=== PATIENT | female | born 1960 | race Caucasian/White ===

== ENCOUNTER 2020-08-12 07:58 | Outpatient (REF) | payer BC, SELFPAY ==
--- NOTE | ~2020-08-12 | MM_ITS ---
EXAMINATION: MM SCREENING DIGITAL BREAST TOMOSYNTHESIS, BILATERAL CLINICAL INFORMATION: Screening. Asymptomatic. The lifetime risk of breast cancer based on the Tyrer-Cuzick Model is 5%. COMPARISON: Mammography: 04/19/2019, 04/13/2018, 03/31/2017, 11/27/2015 TECHNIQUE: Digital breast tomosynthesis is performed in both the craniocaudal and mediolateral oblique views along with computer-aided detection (CAD). Synthesized 2D images are generated from the tomosynthesis. FINDINGS: There are scattered areas of fibroglandular density (ACR BI-RADS breast composition Category b). There are no significant masses, abnormal calcifications, or other abnormalities. Parenchymal pattern is similar to prior exams. No developing density. The axilla and skin contours are unremarkable. MM/MM tomosynthesis screening BI IMPRESSION: No mammographic evidence of malignancy. ASSESSMENT: BI-RADS 1: Negative RECOMMENDATION: Routine annual mammography screening. This patient's information was entered into a reminder system with a target due date for their next mammogram.
== END 2020-08-12 07:59 | disposition home or self-care (01) ==
LOC: HO.MAMMO 07:58
PROVIDERS: Visit Provider Internal Medicine
DX: Z12.31 Encounter for screening mammogram for malignant neoplasm of breast (principal)
CPT/HCPCS: 77063; 77067

== ENCOUNTER 2021-01-08 07:58 | Outpatient (REF) | payer BC, SELFPAY ==
[2021-01-08 08:14] LABS: MANUAL DIFF FLAG NO
[2021-01-08 08:55] LABS: Estimated Average Glucose 140 mg/dL; Hemoglobin A1c % 6.5 %
[2021-01-08 08:56] LABS: Basophils Percent Auto 0.7 % (0-2); Eosinophils Absolute Auto 0.3 X10*3/uL (0.0-0.4); Eosinophils Percent Auto 4.2 % (0-4); Hematocrit 36.9 % (37.0-47.0); Hemoglobin 12.3 g/dl (12.0-16.0); Imm Gran Abs Auto 0.02 X10*3/uL (0.00-0.03); Imm Gran Pct Auto 0.3 % (0.0-0.4); Lymphocytes Absolute Auto 1.4 X10*3/uL (1.2-4.9); Lymphocytes Percent Auto 23.5 % (20-40); Mean Corpuscular HGB Conc 33.3 g/dl (31.0-35.0); Mean Corpuscular Hemoglobin 30.4 pg (27.0-33.0); Mean Corpuscular Volume 91.1 fL (80.0-98.0); Mean Platelet Volume 11.1 fL (9.4-12.3); Monocytes Absolute Auto 0.4 X10*3/uL (0.1-1.2); Monocytes Percent Auto 7.2 % (2-11); Neutrophils Absolute Auto 3.8 x10*3/uL (2.0-8.3); Neutrophils Percent Auto 64.1 % (45-73); Platelet Count 231 X10*3/uL (160-400); Red Blood Count 4.05 X10*6/uL (4.20-5.50); Red Cell Distribution Width 13.3 % (11.0-16.0)
[2021-01-08 09:22] LABS: Alanine Aminotransferase 14 U/L (0-31); Alkaline Phosphatase 56 U/L (39-117); Anion Gap 9 (12-20); Aspartate Amino Transferase 14 U/L (5-31); Bilirubin Total 0.6 mg/dL (0.0-1.0); Blood Urea Nitrogen 15 mg/dL (9-16); Calcium 8.8 mg/dL (8.4-10.2); Carbon Dioxide 27 mmol/L (22-29); Chloride 108 mmol/L (96-108); Cholesterol 134 mg/dL; Estimated Glomerular Filt Rate > 60; Glucose Random 140 mg/dL (60-115); HDL Cholesterol 52 mg/dL; LDL Cholesterol Calculated 72 mg/dl; Potassium 4.3 mmol/L (3.3-5.1); Sodium 140 mmol/L (135-145); Total Protein 6.4 g/dL (6.5-8.0); Triglycerides 50 mg/dL
== END 2021-01-08 07:59 | disposition home or self-care (01) ==
LOC: HO.LAB 07:58
PROVIDERS: PCP Internal Medicine; Visit Provider Physician Assistant
DX: E11.9 Type 2 diabetes mellitus without complications (principal); E78.2 Mixed hyperlipidemia
CPT/HCPCS: 36415; 80053; 80061; 83036; 85025

== ENCOUNTER 2021-04-04 08:44 | Outpatient (REF) | payer BC, SELFPAY ==
--- NOTE | ~2021-04-04 | CT_ITS ---
EXAMINATION: CT HEAD WITHOUT CONTRAST CLINICAL INFORMATION: Dizziness and giddiness. COMPARISON: CT brain 11/08/2014 and June 2005 TECHNIQUE: Contiguous axial imaging was performed from the skull base to vertex without intravenous administration of contrast. This CT examination was performed using dose optimization techniques as appropriate, variously including the following: *Automated exposure control *Adjustment of mA and/or kV according to patient size (this includes techniques or standardized protocols for targeted exams where dose is matched to indication/reason for exam; i.e. extremities or head) *Use of iterative reconstruction technique DLP: 729 mGy-cm FINDINGS: There is a 1.7 x 1.7 cm calcified mass left cerebral hemisphere attached to the left tentorium cerebri most suggestive of a known meningioma. Previously, it measured 1.3 x 2.0 cm in 2014. No acute intra-axial, extra-axial bleed, collection, new masses, or midline shift. The stanton to white matter difference is maintained. There is no acute infarction evolution. There is no edema. There is mild periventricular hypodensity in both cerebral hemispheres without mass effect. The lateral ventricles are symmetrical in size and configuration without enlargement. Bone windows reveal no calvarial abnormality. Bilateral paranasal sinuses and mastoid air cells are well aerated. CT/CT head/brain wo con IMPRESSION: No acute intracranial process seen. Known left cerebellar hemisphere extra-axial calcified mass/meningioma appears unchanged to 2014 and 2005 exam.
== END 2021-04-04 08:45 | disposition home or self-care (01) ==
LOC: HO.CT 08:44
PROVIDERS: PCP Internal Medicine; Visit Provider Physician Assistant
DX: R42 Dizziness and giddiness (principal)
CPT/HCPCS: 70450

== ENCOUNTER 2021-04-21 09:39 | Outpatient (REF) | payer BC, SELFPAY ==
--- NOTE | ~2021-04-21 | US_ITS ---
EXAMINATION: US EXTRACRANIAL CAROTID DUPLEX, BILATERAL CLINICAL INFORMATION: Dizziness COMPARISON: None TECHNIQUE: Real-time ultrasound and Doppler techniques (integrating B-mode 2-D vascular images, Doppler spectral analysis and color-flow Doppler imaging) were utilized to interrogate the extracranial carotid arteries, the vertebral arteries and proximal subclavian arteries bilaterally. The degree of stenosis is determined by criteria similar to NASCET. FINDINGS: Right Side: 1. There is mild atherosclerotic plaque seen in the bifurcation/proximal ICA region. 2. The common carotid artery PSV proximally is 88 cm/s and distally 68 cm/s. 3. The proximal internal carotid artery velocities are 56 cm/s systolic and 13 cm/s diastolic. 4. The proximal external carotid artery PSV is 78 cm/s. 5. The vertebral artery shows antegrade flow. 6. The subclavian artery waveforms are normal. Left Side: 1. There is mild atherosclerotic plaque seen in the bifurcation/proximal ICA region. 2. The common carotid artery PSV proximally is 71 cm/s and distally 66 cm/s. 3. The proximal internal carotid artery velocities are 45 cm/s systolic and 17 cm/s diastolic. 4. The proximal external carotid artery PSV is 62 cm/s. 5. The vertebral artery shows antegrade flow. 6. The subclavian artery waveforms are normal. US/US carotid duplex BI IMPRESSION: 1. RIGHT: Minimal, non-hemodynamically significant stenosis of the proximal right internal carotid artery corresponding to a 0-49% stenosis by velocity criteria. 2. LEFT: Minimal, non-hemodynamically significant stenosis of the proximal left internal carotid artery corresponding to a 0-49% stenosis by velocity criteria.
== END 2021-04-21 09:40 | disposition home or self-care (01) ==
LOC: HO.US 09:39
PROVIDERS: PCP Internal Medicine; Visit Provider Physician Assistant
DX: R42 Dizziness and giddiness (principal)
CPT/HCPCS: 93880

== ENCOUNTER 2021-11-11 13:56 | Outpatient (REF) | payer OTHER, SELFPAY ==
[2021-11-11 18:32] LABS: Rheumatoid Factor < 15.0 IU/mL (<15.0)
[2021-11-11 19:04] LABS: Erythrocyte Sedimentation Rate 12 MM/HR (0-20)
[2021-11-13 12:57] LABS: Anti Nuclear Antibody Screen NEGATIVE (NEGATIVE)
[2021-11-15 22:52] LABS: Antibody to SS-A Antigen <1.0 NEG AI (<1.0 NEG); Antibody to SS-B Antigen <1.0 NEG AI (<1.0 NEG)
== END 2021-11-11 13:57 | disposition home or self-care (01) ==
LOC: HO.MANLDS 13:56
PROVIDERS: Internal Medicine; Visit Provider Physician Assistant
DX: I73.00 Raynaud's syndrome without gangrene (principal)
CPT/HCPCS: 36415; 85652; 86038; 86039; 86235; 86431

== ENCOUNTER 2021-11-15 16:34 | Outpatient (REF) | payer OTHER, SELFPAY ==
--- NOTE | ~2021-11-15 | XR_ITS ---
EXAMINATION: XR FOOT, LEFT CLINICAL INFORMATION: Left foot pain. COMPARISON: None TECHNIQUE: AP, lateral, and oblique views of the left foot. FINDINGS: There is a mild hallux valgus deformity with mild degenerative changes at the first metatarsophalangeal joint. Mild hypertrophic changes are seen in the medial aspect of the distal metatarsal head with overlying soft tissue fullness medially. The remainder the digits are intact. The tarsal bones are normally aligned. There is a small plantar calcaneal spur. Moderate to severe small vessel arterial sclerosis is seen. XR/XR foot LT min 3V IMPRESSION: 1. 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 No overt acute abnormality. 2. Small plantar calcaneal spur. 3. Moderate to severe atherosclerosis.
--- NOTE | ~2021-11-15 | XR_ITS ---
EXAMINATION: XR FOOT, RIGHT CLINICAL INFORMATION: Right foot pain. COMPARISON: None TECHNIQUE: AP, lateral, and oblique views of the right foot. FINDINGS: There is no acute fracture or dislocation. The joint spaces are unremarkable. The tarsal bones are normally aligned. Mild soft tissue swelling is seen. Moderate to severe small vessel arterial sclerosis. XR/XR foot RT min 3V IMPRESSION: Moderate to severe atherosclerosis without significant osseous abnormality.
== END 2021-11-15 16:35 | disposition home or self-care (01) ==
LOC: HO.XRAY 16:34
PROVIDERS: PCP Internal Medicine; Visit Provider Physician Assistant
DX: M79.671 Pain in right foot (principal)
CPT/HCPCS: 73630

== ENCOUNTER 2021-12-10 08:38 | Outpatient (REF) | payer OTHER, SELFPAY ==
[2021-12-10 10:19] LABS: Anion Gap 14 (12-20); Blood Urea Nitrogen 13 mg/dL (9-16); Calcium 9.2 mg/dL (8.4-10.2); Carbon Dioxide 23 mmol/L (22-29); Chloride 109 mmol/L (96-108); Estimated Glomerular Filt Rate > 60; Glucose Random 218 mg/dL (60-115); Potassium 4.4 mmol/L (3.3-5.1); Sodium 142 mmol/L (135-145)
== END 2021-12-10 08:39 | disposition home or self-care (01) ==
LOC: HO.LAB 08:38
PROVIDERS: PCP Internal Medicine; Visit Provider Internal Medicine Cardiovascular Disease
DX: I10 Essential (primary) hypertension (principal)
CPT/HCPCS: 36415; 80048

== ENCOUNTER 2021-12-31 08:06 | Outpatient (REF) | payer OTHER, SELFPAY ==
--- NOTE | ~2021-12-31 | MM_ITS ---
EXAMINATION: MM SCREENING DIGITAL BREAST TOMOSYNTHESIS, BILATERAL CLINICAL INFORMATION: Screening. Asymptomatic. COMPARISON: Mammography: 08/12/2020, 04/19/2019, 04/13/2018 TECHNIQUE: Digital breast tomosynthesis is performed in both the craniocaudal and mediolateral oblique views along with computer-aided detection (CAD). Synthesized 2D images are generated from the tomosynthesis. FINDINGS: There are scattered areas of fibroglandular density (ACR BI-RADS breast composition Category b). There are no significant masses, abnormal calcifications, or other abnormalities. Parenchymal pattern is similar to prior exams. There is stable oval parenchymal asymmetry mid central 9:00 right breast. Scattered bilateral round and vascular calcifications are again seen. No significant changes. MM/MM tomosynthesis screening BI IMPRESSION: No mammographic evidence of malignancy. ASSESSMENT: BI-RADS 2: Benign RECOMMENDATION: Routine annual mammography screening. This patient's information was entered into a reminder system with a target due date for their next mammogram.
[2021-12-31 08:44] LABS: MANUAL DIFF FLAG NO
[2021-12-31 09:04] LABS: Basophils Absolute Auto 0.1 X10*3/uL (0.0-0.2); Basophils Percent Auto 0.8 % (0-2); Eosinophils Absolute Auto 0.4 X10*3/uL (0.0-0.4); Eosinophils Percent Auto 5.2 % (0-4); Hemoglobin 12.4 g/dl (12.0-16.0); Imm Gran Abs Auto 0.06 X10*3/uL (0.00-0.03); Imm Gran Pct Auto 0.8 % (0.0-0.4); Lymphocytes Percent Auto 26.3 % (20-40); Mean Corpuscular HGB Conc 33.5 g/dl (31.0-35.0); Mean Corpuscular Hemoglobin 29.6 pg (27.0-33.0); Mean Corpuscular Volume 88.3 fL (80.0-98.0); Mean Platelet Volume 11.2 fL (9.4-12.3); Monocytes Absolute Auto 0.4 X10*3/uL (0.1-1.2); Monocytes Percent Auto 5.9 % (2-11); Neutrophils Absolute Auto 4.6 x10*3/uL (2.0-8.3); Platelet Count 280 X10*3/uL (160-400); Red Blood Count 4.19 X10*6/uL (4.20-5.50); Red Cell Distribution Width 13.7 % (11.0-16.0); White Blood Count 7.5 X10*3/uL (4.8-10.8)
[2021-12-31 09:20] LABS: Estimated Average Glucose 192 mg/dL; Hemoglobin A1c % 8.3 %
[2021-12-31 09:39] LABS: Alanine Aminotransferase 39 U/L (0-31); Albumin Level 4.1 g/dL (3.5-5.0); Alkaline Phosphatase 67 U/L (39-117); Anion Gap 15 (12-20); Aspartate Amino Transferase 31 U/L (5-31); Bilirubin Total 0.6 mg/dL (0.0-1.0); Blood Urea Nitrogen 18 mg/dL (9-16); Calcium 9.4 mg/dL (8.4-10.2); Carbon Dioxide 21 mmol/L (22-29); Chloride 109 mmol/L (96-108); Cholesterol 116 mg/dL; Estimated Glomerular Filt Rate > 60; Glucose Random 223 mg/dL (60-115); HDL Cholesterol 41 mg/dL; LDL Cholesterol Calculated 65 mg/dl; Potassium 4.8 mmol/L (3.3-5.1); Sodium 140 mmol/L (135-145); Total Protein 6.5 g/dL (6.5-8.0); Triglycerides 52 mg/dL
== END 2021-12-31 08:07 | disposition home or self-care (01) ==
LOC: HO.MAMMO 08:06
PROVIDERS: Physician Assistant; PCP Internal Medicine; Visit Provider Internal Medicine
DX: E78.2 Mixed hyperlipidemia (principal); E11.9 Type 2 diabetes mellitus without complications; Z12.31 Encounter for screening mammogram for malignant neoplasm of breast
CPT/HCPCS: 36415; 77063; 77067; 80053; 80061; 83036; 85025

== ENCOUNTER 2022-05-29 23:24 | Outpatient (REF) | payer OTHER, SELFPAY ==
[2022-05-30 00:06] LABS: Appearance Urine Clear; Color Urine Yellow; Glucose Urine UA Negative (Negative); Leukocyte Esterase Urine Small (1+) (Negative); Nitrite Urine Negative (Negative); PH 5.5 (5.0-9.0); Specific Gravity - Urine <= 1.005 (1.005-1.025); UMIC TRIGGER UACC YES; Urine Blood Trace (Negative); Urine Ketones Negative (Negative); Urine Protein Negative (Neg-Trace)
[2022-05-30 00:08] LABS: Bacteria Urine None Seen (None Seen); Hyaline Casts Urine 0-2 /LPF (0-2); RBC Urine 0-2 /HPF (0-2); Squamous Epithelial Cell Urine 0-2 /HPF (0-2); UACC Culture Trigger YES
== END 2022-05-29 23:25 | disposition home or self-care (01) ==
LOC: HO.LAB 23:24
PROVIDERS: Visit Provider Physician Assistant
DX: R30.0 Dysuria (principal)
CPT/HCPCS: 81001; 81003; 87086

== ENCOUNTER 2022-06-13 09:08 | Outpatient (REF) | payer OTHER, SELFPAY ==
[2022-06-13 11:38] LABS: Appearance Urine Clear; Color Urine Yellow; Glucose Urine UA 250 mg/dL (Negative); Leukocyte Esterase Urine Negative (Negative); Nitrite Urine Negative (Negative); PH 5.5 (5.0-9.0); Specific Gravity - Urine <= 1.005 (1.005-1.025); Urine Blood Negative (Negative); Urine Ketones Negative (Negative); Urine Protein Negative (Neg-Trace)
== END 2022-06-13 09:09 | disposition home or self-care (01) ==
LOC: HO.MANLDS 09:08
PROVIDERS: Visit Provider Internal Medicine
DX: R30.0 Dysuria (principal)
CPT/HCPCS: 81003

== ENCOUNTER 2022-11-20 07:39 | Outpatient (REF) | payer OTHER, SELFPAY ==
[2022-11-20 13:59] LABS: Estimated Average Glucose 154 mg/dL
[2022-11-20 14:32] LABS: Alanine Aminotransferase 58 U/L (0-31); Albumin Level 4.1 g/dL (3.5-5.0); Alkaline Phosphatase 64 U/L (39-117); Anion Gap 15 (12-20); Aspartate Amino Transferase 47 U/L (5-31); Bilirubin Total 0.5 mg/dL (0.0-1.0); Blood Urea Nitrogen 9 mg/dL (9-16); Calcium 9.6 mg/dL (8.4-10.2); Carbon Dioxide 22 mmol/L (22-29); Chloride 109 mmol/L (96-108); Cholesterol 91 mg/dL (<200); Estimated Glomerular Filt Rate > 60; Glucose Random 153 mg/dL (60-115); HDL Cholesterol 42 mg/dL (>40); LDL Cholesterol Calculated 37 mg/dL (<100); Potassium 4.4 mmol/L (3.3-5.1); Sodium 142 mmol/L (135-145); Total Protein 6.8 g/dL (6.5-8.0); Triglycerides 60 mg/dL (<150)
== END 2022-11-20 07:40 | disposition home or self-care (01) ==
LOC: HO.MANLDS 07:39
PROVIDERS: Visit Provider Physician Assistant
DX: E11.9 Type 2 diabetes mellitus without complications (principal)
CPT/HCPCS: 36415; 80053; 80061; 83036

== ENCOUNTER 2023-01-09 07:40 | Outpatient (REF) | payer OTHER, SELFPAY ==
[2023-01-09 13:39] LABS: Estimated Average Glucose 146 mg/dL; Hemoglobin A1c % 6.7 % (<6.0)
[2023-01-09 13:50] LABS: Alanine Aminotransferase 47 U/L (0-31); Albumin Level 4.5 g/dL (3.5-5.0); Alkaline Phosphatase 69 U/L (39-117); Anion Gap 13 (12-20); Aspartate Amino Transferase 42 U/L (5-31); Bilirubin Total 0.5 mg/dL (0.0-1.0); Blood Urea Nitrogen 14 mg/dL (9-16); Calcium 10.2 mg/dL (8.4-10.2); Carbon Dioxide 23 mmol/L (22-29); Chloride 106 mmol/L (96-108); Cholesterol 95 mg/dL (<200); Estimated Glomerular Filt Rate > 60; Glucose Random 100 mg/dL (60-115); HDL Cholesterol 45 mg/dL (>40); LDL Cholesterol Calculated 36 mg/dL (<100); Potassium 3.7 mmol/L (3.3-5.1); Sodium 138 mmol/L (135-145); Total Protein 7.5 g/dL (6.5-8.0); Triglycerides 71 mg/dL (<150)
== END 2023-01-09 07:41 | disposition home or self-care (01) ==
LOC: HO.MANLDS 07:40
PROVIDERS: Visit Provider Physician Assistant
DX: E11.9 Type 2 diabetes mellitus without complications (principal)
CPT/HCPCS: 36415; 80053; 80061; 83036

== ENCOUNTER 2023-01-27 07:57 | Outpatient (REF) | payer OTHER, SELFPAY ==
--- NOTE | ~2023-01-27 | MM_ITS ---
EXAMINATION: MM SCREENING DIGITAL BREAST TOMOSYNTHESIS, BILATERAL CLINICAL INFORMATION: Screening. Asymptomatic. COMPARISON: Mammography: This study is compared with prior exams dating back to 2019. TECHNIQUE: Digital breast tomosynthesis is performed in both the craniocaudal and mediolateral oblique views along with computer-aided detection (CAD). Synthesized 2D images are generated from the tomosynthesis. FINDINGS: There are scattered areas of fibroglandular density (ACR BI-RADS breast composition Category b). There are grouped calcifications in the superior aspect of the left breast. These warrant additional mammographic imaging with magnification. In the right breast, there are no significant masses, abnormal calcifications, or other abnormalities. MM/MM tomosynthesis screening BI IMPRESSION: Left breast calcifications warrant additional mammographic imaging magnification. No mammographic signs of malignancy right breast. ASSESSMENT: BI-RADS BI-RADS 0 - Incomplete: Needs additional Imaging. RECOMMENDATION: Additional views of the left breast Radiology department staff will contact the patient for additional imaging. Additional Imaging required This examination should not preclude the clinical evaluation of a suspicious palpable abnormality. This patient's information was entered into a reminder system with a target due date for their next mammogram.
== END 2023-01-27 07:58 | disposition home or self-care (01) ==
LOC: HO.MAMMO 07:57
PROVIDERS: PCP Internal Medicine; Visit Provider Internal Medicine
DX: Z12.31 Encounter for screening mammogram for malignant neoplasm of breast (principal)
CPT/HCPCS: 77063; 77067

== ENCOUNTER → 2023-01-27 08:15 | Outpatient (BNV) | payer OTHER, SELFPAY | PROVIDERS: PCP Internal Medicine; Visit Provider Radiology Diagnostic Radiology | DX: Z12.31 Encounter for screening mammogram for malignant neoplasm of breast (principal) | CPT/HCPCS: 77063; 77067 ==

== ENCOUNTER 2023-03-02 14:07 | Outpatient (REF) | payer OTHER, SELFPAY ==
--- NOTE | ~2023-03-02 | MM_ITS ---
EXAMINATION: MM DIAGNOSTIC DIGITAL MAMMOGRAPHY, LEFT CLINICAL INFORMATION: Follow-up left breast calcifications seen tightly grouped superior slightly inner left breast mid to anterior one third. COMPARISON: Mammography: 01/27/2023, 12/31/2021, 08/12/2020, and dating back to 2014. TECHNIQUE: Digital mammography is performed in the following views: 2-D spot magnification views left CC and ML projections. FINDINGS: There are scattered areas of fibroglandular density (ACR BI-RADS breast composition Category b). Calcifications identified in the upper slightly inner left breast, mid to anterior one third, appears somewhat coarse, tightly grouped, minimally pleomorphic, with no linear or branching forms. These have a probably benign, likely dystrophic appearance. Six-month follow-up left breast mammogram with standard magnification views recommended to to ensure stability. Results are provided to the patient at time of visit by the technologist. MM/MM added views LT IMPRESSION: Probably benign calcifications left breast as detailed above. Six-month interval follow-up left mammography with standard magnification views recommended. ASSESSMENT: BI-RADS BI-RADS 3 - Probably benign finding(s) - 6 month follow-up suggested RECOMMENDATION: 6 Month F/U This patient's information was entered into a reminder system with a target due date for their next mammogram.
== END 2023-03-02 14:08 | disposition home or self-care (01) ==
LOC: HO.MAMMO 14:07
PROVIDERS: PCP Internal Medicine; Visit Provider Internal Medicine
DX: R92.1 Mammographic calcification found on diagnostic imaging of breast (principal)
CPT/HCPCS: 77065

== ENCOUNTER → 2023-03-02 14:30 | Outpatient (BNV) | payer OTHER, SELFPAY | PROVIDERS: PCP Internal Medicine; Visit Provider Radiology Diagnostic Radiology | DX: R92.1 Mammographic calcification found on diagnostic imaging of breast (principal) | CPT/HCPCS: 77065 ==

== ENCOUNTER 2023-06-18 08:08 | Outpatient (REF) | payer OTHER, SELFPAY ==
[2023-06-18 13:42] LABS: Estimated Average Glucose 137 mg/dL; Hemoglobin A1c % 6.4 % (<6.0)
[2023-06-18 13:59] LABS: Alanine Aminotransferase 54 U/L (0-31); Albumin Level 4.2 g/dL (3.5-5.0); Alkaline Phosphatase 73 U/L (39-117); Anion Gap 16 (12-20); Aspartate Amino Transferase 38 U/L (5-31); Bilirubin Total 0.6 mg/dL (0.0-1.0); Blood Urea Nitrogen 13 mg/dL (9-16); Calcium 9.7 mg/dL (8.4-10.2); Carbon Dioxide 22 mmol/L (22-29); Chloride 106 mmol/L (96-108); Cholesterol 105 mg/dL (<200); Estimated Glomerular Filt Rate > 60; Glucose Random 183 mg/dL (60-115); HDL Cholesterol 54 mg/dL (>40); LDL Cholesterol Calculated 43 mg/dL (<100); Sodium 140 mmol/L (135-145); Total Protein 7.2 g/dL (6.5-8.0); Triglycerides 41 mg/dL (<150)
== END 2023-06-18 08:09 | disposition home or self-care (01) ==
LOC: HO.MANLDS 08:08
PROVIDERS: Visit Provider Physician Assistant
DX: E11.9 Type 2 diabetes mellitus without complications (principal)
CPT/HCPCS: 36415; 80053; 80061; 83036

== ENCOUNTER 2023-09-06 11:10 | Outpatient (REF) | payer OTHER, SELFPAY ==
--- NOTE | ~2023-09-06 | MM_ITS ---
EXAMINATION: MM DIAGNOSTIC DIGITAL MAMMOGRAPHY, LEFT CLINICAL INFORMATION: Six-month follow-up for probably benign grouped left breast calcifications slightly inner superior left breast, mid to anterior one third. COMPARISON: Mammography: 03/02/2023, 01/27/2023 (BI-RADS 0), and exams dating back to 2016. TECHNIQUE: Digital mammography is performed in the following views: 2-D spot magnification left CC x2, and left ML x2. Computer-aided diagnosis was used for this study. FINDINGS: There are scattered areas of fibroglandular density (ACR BI-RADS breast composition Category b). Calcifications identified in the upper slightly inner left breast, mid to anterior one third, appears somewhat coarse, tightly grouped, minimally pleomorphic, with no linear or branching forms. These have a probably benign, likely dystrophic appearance, and are entirely unchanged. Six-month follow-up left breast mammogram with standard magnification views recommended to to ensure stability. Results are provided to the patient at time of visit by the technologist. MM/MM diagnostic mammo unilat LT IMPRESSION: There are no findings suspicious for malignancy left breast. Left breast calcifications which are tightly grouped remain probably benign as discussed. Six-month follow-up left breast diagnostic mammography including standard magnification views recommended when the patient is due for bilateral screening. ASSESSMENT: BI-RADS BI-RADS 3 - Probably benign finding(s) - 6 month follow-up suggested RECOMMENDATION: 6 Month F/U This patient's information was entered into a reminder system with a target due date for their next mammogram.
== END 2023-09-06 11:11 | disposition home or self-care (01) ==
LOC: HO.MAMMO 11:10
PROVIDERS: Visit Provider Internal Medicine
DX: N64.89 Other specified disorders of breast (principal)
CPT/HCPCS: 77062; 77065

== ENCOUNTER → 2023-09-06 11:30 | Outpatient (BNV) | payer OTHER, SELFPAY | PROVIDERS: Visit Provider Radiology Diagnostic Radiology | DX: R92.1 Mammographic calcification found on diagnostic imaging of breast (principal) | CPT/HCPCS: 77065 ==

== ENCOUNTER 2023-09-21 07:42 | Outpatient (REF) | payer OTHER, SELFPAY ==
[2023-09-21 13:28] LABS: Estimated Average Glucose 134 mg/dL; Hemoglobin A1c % 6.3 % (<6.0)
[2023-09-21 14:41] LABS: Alanine Aminotransferase 29 U/L (0-31); Albumin Level 4.3 g/dL (3.5-5.0); Alkaline Phosphatase 68 U/L (39-117); Anion Gap 14 (12-20); Aspartate Amino Transferase 27 U/L (5-31); Bilirubin Total 0.5 mg/dL (0.0-1.0); Blood Urea Nitrogen 14 mg/dL (9-16); Calcium 9.5 mg/dL (8.4-10.2); Carbon Dioxide 22 mmol/L (22-29); Chloride 108 mmol/L (96-108); Cholesterol 110 mg/dL (<200); Estimated Glomerular Filt Rate > 60; Glucose Random 160 mg/dL (60-115); HDL Cholesterol 56 mg/dL (>40); LDL Cholesterol Calculated 46 mg/dL (<100); Sodium 140 mmol/L (135-145); Triglycerides 43 mg/dL (<150)
== END 2023-09-21 07:43 | disposition home or self-care (01) ==
LOC: HO.MANLDS 07:42
PROVIDERS: Visit Provider Physician Assistant
DX: E11.9 Type 2 diabetes mellitus without complications (principal)
CPT/HCPCS: 36415; 80053; 80061; 83036

== ENCOUNTER → 2024-03-27 13:30 | Outpatient (BNV) | payer OTHER, MEDICARE, SELFPAY | PROVIDERS: PCP Internal Medicine; Visit Provider Internal Medicine | DX: R92.1 Mammographic calcification found on diagnostic imaging of breast (principal); R92.323 Mammographic fibroglandular density, bilateral breasts | CPT/HCPCS: 77062; 77066 ==

== ENCOUNTER 2024-04-04 08:39 | Outpatient (REF) | payer OTHER, MEDICARE, SELFPAY ==
--- OUTSIDE RECORDS SUMMARY | 2024-04-04 08:55 | XMS_ITS | Data Portability ---
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 MEET 2 OUT OF 3 ELEMENTS: PROBLEMS, DATA OR RISK ELEMENT 1: PROBLEMS ADDRESSED 1 OR MORE CHRONIC ILLNESS WITH EXACERBATION OR 2 OR MORE STABLE CHRONIC ILLNESSES OR 1 UNDIAGNOSED NEW PROBLEM OR 1 ACUTE ILLNESS W/SYMPTOMS OR 1 ACUTE COMPLICATED INJURY ELEMENT 2: DATA MUST MEET 1 OF 3 CATEGORIES CATEGORY 1: REVIEW OF PRIOR EXTERNAL NOTES, REVIEW OF RESULTS, ORDERING OF EACH TEST, ASSESSMENT REQUIRING INDEPENDENT HISTORIAN OR CATEGORY 2: INDEPENDENT INTERPRETATION OF TESTS BY ANOTHER PHYSICIAN OR SPECIALIST OR CATEGORY 3: DISCUSSION OF MGT OR TEST INTERPRETATION W/EXTERNAL PHYSICIAN OR SPECIALIST ELEMENT 3: RISK RISK OF COMPLICATIONS AND/OR MORBIDITY OR MORTALITY OF PATIENT MANAGEMENT PROVIDER MUST THOROUGHLY DOCUMENT EACH ELEMENT THAT IS COVERED Not available 06/20/2023 15:17:04 Plan of Treatment Reminders Order Date Submit Date Provider Last Modified By Organization Details Last Modified Time Details Appointments MEDICAR E MATTHIEU WELLNES S 2024 10:30A M ESPINOZA GUERRERO Not available Not available Not available Lab HbA1c (hemogl obin A1c), blood 2023 024 [facility], [address] [place] [address], [place], [address], 06/20/2023 15:20:20 CMP, serum or plasma 2022 023 [facility], [address] [place] [address], [id number], 11/21/2022 12:08:05 lipid panel, blood 2022 023 [facility], [address] [place] [address], [id number], 09/06/2022 16:50:26 hemoglo bin A1c, QN, blood 2022 023 [facility], [address] [place] [address], [id number], 09/06/2022 16:50:27 CMP, serum or plasma 2022 023 [facility], [address] [place] [address], [address], 01/10/2023 12:03:34 CMP, serum or plasma 2022 024 [facility], [address] [place] [address], [id number], 06/19/2023 11:26:14 CMP, serum or plasma 2023 024 [facility], [address] [place] [address], [place], [address], 06/19/2023 11:26:14 urinaly sis, dipstic k 2022 023 [facility], [address], [address], [place], [address], 05/29/2022 11:52:43 urinaly sis complet e, reflex culture 2022 023 [facility], [address] [place] [address], [id number], 05/30/2022 11:19:02 LORY (antinu clear antibod ies) screen, serum 2021 022 [facility], [address] [place] [address], [place], [address], 11/11/2021 13:50:33 ESR (erythr ocyte sedimen tation rate), blood 2021 [facility], [address] [place] [address], [place], [address], 11/14/2021 11:13:05 rf (rheuma toid factor) , serum 2021 [facility], [address] [place] [address], [place], [address], 11/11/2021 13:50:33 sjogren antibod y panel (ssa, ssb, ro, la), serum 2021 [facility], [address] [place] [address], [address], 11/11/2021 13:50:33 PPD (purifi ed protein derivat crow), skin test 2021 [email or web address] [facility], [address], [address], [place], [address], 06/24/2021 15:36:14 Referral orthope dic surgeon referra l 2021 [email or web address] 10 Jamari Palomo MD, [address], [address], [place], [address], 11/25/2021 16:27:30 Procedures None recorde d. Surgeries None recorde d. Imaging US, duplex, arteria l, lower extremi ty 2021 [email or web address] 10 [facility], [address], [place], [address], 11/14/2021 10:33:12 XR, foot, 3 or more view 2021 [facility], [address] [place], [address], 11/17/2021 11:28:51 Medication Orders Ozempic 0.25 mg or 0.5 mg (2 mg/1.5 mL) subcuta neous pen injecto r 2022 023 [email or web address] [facility] [place], [address] [place], [address], 06/20/2023 15:06:34 rosuvas tatin 40 mg tablet 2022 023 [facility] [place], [address] [place], [address], 09/06/2022 16:51:27 Bactrim DS 800 mg-160 mg tablet 2022 023 [facility] [place], [address] [place], [address], 06/20/2023 15:13:32 Pyridiu m 200 mg tablet 2022 023 [email or web address] [facility] [place], [address] [place], [address], 09/06/2022 16:11:11 topiram ate 25 mg tablet 2021 022 [email or web address] [facility] [place], [address] [place], [address], 05/29/2022 11:29:53 tramado l 50 mg tablet 2021 022 [facility] [place], [address] [place], [address], 11/11/2021 14:01:14 Patient TargetsNo targets recorded. Patient Instructions Encounter Date Encounter Id Patient Instructions Last Modified By Organization Details Last Modified Time 09/06/2022 [id number] diabetic foot exam* [id number] Not available 09/13/2022 08:00:27 06/20/2023 [id number] Peripheral Arterial Disease (PAD): Care Instructions Not available 06/20/2023 15:19:12 Reason for Referral Orthopedic Surgeon Referral for Degenerative joint disease of hand left hand pain due to arthritis, current patient Referring Physician: Mimi De León, Internal Medicine, Encounter Date: 11/11/2021 Results Created Date Observation Date Name Description Value Unit Range Abnormal Flag Note LastModifiedBy Organization Detail LastModifiedTime 06/25/19 22 06/24/2021 PPD (lj fied prote in deriv ative ), skin test TB negati ve Not Available [facility] [address] [place] [address], [place], [address], 06/24/2021 15:25:38 05/30/19 23 05/29/2022 urina lysis , dipst ick Leukocytes Trace Not Available [facility] [address], [place], [address], 05/29/2022 11:24:42 05/30/19 23 05/29/2022 urina lysis , dipst ick Nitrite negati ve Not Available [address], [place], [address], 05/29/2022 11:24:42 05/30/19 23 05/29/2022 urina lysis , dipst ick Urobilinogen .2 Not Available [facility] [address] [facility] [address], [place], [address], 05/29/2022 11:24:42 05/30/19 23 05/29/2022 urina lysis , dipst ick Protein Negati ve Not Available [address], [place], [address], 05/29/2022 11:24:42 05/30/19 23 05/29/2022 urina lysis , dipst ick pH 6.0 Not Available [facility] [address], [place], [address], 05/29/2022 11:24:42 05/30/19 23 05/29/2022 urina lysis , dipst ick Blood Small Not Available [facility] [address], [place], [address], 05/29/2022 11:24:42 05/30/19 23 05/29/2022 urina lysis , dipst ick Specific [place] 1.015 Not Available [facility] [address], [place], [address], 05/29/2022 11:24:42 05/30/19 23 05/29/2022 urina lysis , dipst ick Ketone Negati ve Not Available [facility] [address] [facility] [address], [place], [address], 05/29/2022 11:24:42 05/30/19 23 05/29/2022 urina lysis , dipst ick Bilirubin Negati ve Not Available [facility] [address], [place], [address], 05/29/2022 11:24:42 05/30/19 23 05/29/2022 urina lysis , dipst ick Glucose Negati ve Not Available [facility] [address], [place], [address], 05/29/2022 11:24:42 05/30/19 23 05/29/2022 urina lysis , dipst ick Appearance Slight ly Cloudy Not Available [facility] [address], [place], [address], 05/29/2022 11:24:42 05/30/19 23 05/29/2022 urina lysis , dipst ick Color Pale Yellow Not Available [facility] [address], [place], [address], 05/29/2022 11:24:42 11/18/19 22 11/15/2021 XR, foot, 3 or more view No observ ation record ed. [facility] (Medical Records) [address] [place], [address], 11/21/2021 15:59:37 11/18/19 22 11/15/2021 XR, foot, 3 or more view No observ ation record ed. [facility] (Medical Records) [address] [place], [address], 11/21/2021 15:59:38 01/04/20 22 12/31/2021 MAMMO , cecilia mary, digit al, bilat eral No observ ation record ed. [facility] [address] [place] [address] , [place], [address], 01/03/2022 08:29:09 02/10/20 22 12/28/2021 carmen dorsey s test No observ ation record ed. [address] [facility] [address], [place], [address], 02/15/2022 15:48:56 02/16/20 22 01/27/2022 sunita ahumada echoc ardio gram No observ ation record ed. [facility] [address], [place], [address], 02/16/2022 08:52:33 10/31/19 23 04/26/2022 , ju ferguson ial, lower extre mity No observ ation record ed. [facility] [address], [place], [address], 10/30/2022 12:46:31 01/30/20 23 01/27/2023 MAMMO , scree mary, digit al, bilat eral No observ ation record ed. [email or web address] [address] [place], [address], 01/29/2023 16:26:42 03/02/19 24 03/02/2023 MAMMO , diagn ostic , digit al, unila teral No observ ation record ed. [address] [place], [address], 03/02/2023 15:07:06 09/06/19 24 09/06/2023 MAMMO , diagn ostic , digit al, unila teral No observ ation record ed. [email or web address] [address] [place], [address], 09/06/2023 23:09:26 03/27/19 25 03/27/2024 MAMMO , diagn ostic , unila teral No observ ation record ed. [address] [place], [address], 03/28/2024 08:55:39 Result Notes None recorded. Problems Name Problem SNOMED Code Status Onset Date Resolution Date Notes Provider Name and Address Organization Details Recorded Time Pre-exis ting type 2 diabetes mellitus 309715472 Active 2017 Margret Guerrier NP, S [address] [place], [address], [facility] 8 17:27:00 Hypercho lesterol emia 39247986 Active 2017 Margret Guerrier NP, S [address] [place], [address], [facility] 8 17:27:09 COVID-19 576217630 Completed 201901/20/2020 in the summer ESPINOZA GUERRERO [address] [place], [address], [facility] 0 13:53:32 Overweig ht 959614154 Active 2021 ESPINOZA GUERRERO [address] [place], [address], [facility] 2 11:29:29 Bilatera l foot joint pain 65487572559 404088 Active 2021 ESPINOZA GUERRERO [address] [place], [address], [facility] 2 13:39:09 Raynaud' s disease 669823560 Active 2021 ESPINOZA GUERRERO [address] [place], [address], [facility] 2 13:39:49 Degenera tive joint disease of hand 56078610 Active 2021 ESPINOZA GUERRERO [address] [place], [address], [facility] 2 13:40:58 Degenera tive joint disease of hand 50940180 Active 2021 ESPINOZA GUERRERO [address] [place], [address], [facility] 2 13:41:11 Peripher al pulse absent 293365775 Active 2021 ESPINOZA GUERRERO [address] [place], [address], [facility] 2 13:48:13 Peripher al vascular disease 254480753 Active 2021 ESPINOZA GUERRERO [address] [place], [address], [facility] 2 15:59:57 Type 2 diabetes mellitus 02655760 Active 2021 ESPINOZA GUERRERO [address] [place], [address], [facility] 2 16:57:19 Diabetic peripher al neuropat hy 399889230 Active 2022 ESPINOZA GUERRERO [address] [place], [address], [facility] 3 11:52:30 Dysuria 34436956 Active 2022 ESPINOZA GUERRERO [address] [place] [address], [address], [facility] 3 11:54:39 Candidia sis of vagina 66822408 Active 2022 Arsenio Pleitez, DO [address] [place] [address], [address], [facility] 3 15:10:14 Acute urinary tract infectio n 882089643 Active 2022 ESPINOZA GUERRERO [address] [place] [address], [address], [facility] 3 16:08:45 Mammogra phic calcific ation of left breast 28331268820 306549 Active 2022 Arsenio Pleitez, DO [address] [place] [address], [address], [facility] 3 16:51:42 Mass of left breast 81607275165 753094 Active 2023 ESPINOZA GUERRERO [address] [place] [address], [address], [facility] 4 15:18:51 Calcific ation of breast 760506644 Active 2023 ESPINOZA GUERRERO [address] [place] [address], [address], [facility] 4 16:03:40 Bilatera l vitreous floaters 58829511221 9101 Active 2023 ESPINOZA GUERRERO [address] [place] [address], [address], [facility] 4 11:03:47 Urine consiste ncy frothy 44629237348 4102 Active 2024 ESPINOZA GUERRERO [address] [place], [address], [facility] 11:57:27 Problem Notes None recorded. Procedures Surgical History None recorded. Imaging Results Imaging Date Name Status LastModified by Organization Details LastModified Time 11/15/2021 XR, foot, 3 or more view completed [facility] (Medical Records) [address] [place], [address], 11/21/2021 15:59:37 11/15/2021 XR, foot, 3 or more view completed [facility] (Medical Records) [address] [place], [address], 11/21/2021 15:59:38 12/31/2021 MAMMO, screening, digital, bilateral completed [address] [place], [address], 01/03/2022 08:29:09 12/28/2021 exercise stress test completed [address] [facility] [address], [place], [address], 02/15/2022 15:48:56 01/27/2022 stress echocardiogram completed [facility] [address], [place], [address], 02/16/2022 08:52:33 04/26/2022 US, duplex, arterial, lower extremity completed [facility] [address], [place], [address], 10/30/2022 12:46:31 01/27/2023 MAMMO, screening, digital, bilateral completed [email or web address] [address] [place], [address], 01/29/2023 16:26:42 03/02/2023 MAMMO, diagnostic, digital, unilateral completed [email or web address] [address] [place], [address], 03/02/2023 15:07:06 09/06/2023 MAMMO, diagnostic, digital, unilateral completed [email or web address] [address] [place], [address], 09/06/2023 23:09:26 03/27/2024 MAMMO, diagnostic, unilateral completed [email or web address] [address] [place], [address], 03/28/2024 08:55:39 Procedure Notes None recorded. Medical Equipment None Reported. Allergies No known drug allergies Medications Name Sig Start Date Stop Date Status Note LastModified by Organization Details LastModified Time amoxicillin 500 mg capsule 10/31 completed Not Available Not Available Not Available metformin 500 mg tablet TAKE 2 TABLETS BY MOUTH TWICE DAILY active Not Available Not Available No t Available cilostazol 100 mg tablet TAKE 1 TABLET BY MOUTH TWICE DAILY 05/29 completed Not Available Not Available Not Available atorvastati n 80 mg tablet TAKE 1 TABLET BY MOUTH ONCE DAILY NEEDS APPT FOR FURTHER REFILLS. CALL OFFICE 09/06 completed Not Available Not Available Not Available atorvastati n 20 mg tablet TAKE 1 TABLET BY MOUTH EVERY DAY 07/29 completed Not Available Not Available Not Available cefpodoxime 100 mg tablet TAKE 1 TABLET BY MOUTH every 12 hours FOR 5 DAYS 06/19 completed Not Available Not Available Not Available cilostazol 50 mg tablet Take 2 tablets (100 mg total) by mouth 2 (two) times a day. active Not Available Not Available No t Available fluconazole 150 mg tablet TAKE 1 TABLET BY MOUTH DAILY FOR 3 DAYS active Not Available Not Available No t Available phenazopyri dine 200 mg tablet TAKE 1 TABLET BY MOUTH THREE TIMES DAILY NEEDED FOR dysuria active Not Available Not Available No t Available glipizide 10 mg tablet TAKE 1 TABLET BY MOUTH DAILY WITH food active Not Available Not Available No t Available Tubersol 5 tub. unit/0.1 mL intradermal injection solution Inject 0.1 mL by intraderm al route. 11/11 completed Not Available Not Available Not Available phentermine 15 mg capsule TAKE 1 CAPSULE BY MOUTH DAILY 05/29 completed Not Available Not Available Not Available topiramate 25 mg tablet TAKE 1 TABLET BY MOUTH DAILY FOR 30 DAYS 05/29 completed Not Available Not Available Not Available meclizine 12.5 mg tablet TAKE 1 TABLET BY MOUTH THREE TIMES DAILY 01/19 completed Not Available Not Available Not Available clopidogrel 75 mg tablet Take 1 tablet (75 mg total) by mouth daily. active Not Available Not Available No t Available sulfamethox azole 800 mg-trimetho prim 160 mg tablet Take 1 tablet every 12 hours by oral route for 7 days. WITH plenty OF WATER 06/19 completed Not Available Not Available Not Available tramadol 50 mg tablet TAKE 1 TABLET BY MOUTH every 6 hours FOR 7 DAYS active Not Available Not Available No t Available triamcinolo ne acetonide 0.1 % topical cream APPLY A THIN LAYER TO THE AFFECTED AREA(S) BY TOPICAL ROUTE 2 TIMES PER DAY 12/15 completed Not Available Not Available Not Available oxycodone-a cetaminophe n 5 mg-325 mg tablet 10/31 completed Not Available Not Available Not Available OneTouch Ultra Test strips USE TO test blood sugar TWICE A DAY active Not Available Not Available No t Available diazepam 2 mg tablet TAKE 1 TABLET BY MOUTH every DAY needed 11/11 completed Not Available Not Available Not Available apple cider vinegar 600 mg capsule Take by oral route. active Not Available Not Available No t Available lisinopril 10 mg tablet TAKE 1 TABLET BY MOUTH EVERY DAY active Not Available Not Available No t Available gabapentin 100 mg capsule TAKE 1 CAPSULE BY MOUTH ONCE DAILY 05/29 completed Not Available Not Available Not Available glipizide 5 mg tablet Take 1 tablet by mouth once a day 09/06 completed Not Available Not Available Not Available rosuvastati n 40 mg tablet TAKE 1 TABLET BY MOUTH ONCE DAILY active Not Available Not Available No t Available zinc 50 mg capsule Take 1 capsule twice a week by oral route. active Not Available Not Available No t Available nitrofurant oin monohydrate /macrocryst als 100 mg capsule TAKE 1 CAPSULE BY MOUTH EVERY 12 HOURS FOR 5 DAYS 05/29 completed Not Available Not Available Not Available Vitamin C active Not Available Not Reyna ilable Not Available cyanocobala min (vitamin B-12) active Not Available Not Available Not Available vitamin B complex active B-12 Not Available Not Available Not Available niacin 12/15 completed Not Available Not Available Not Available Fish Oil 11/11 completed Not Available Not Available Not Available IBU-200 take 2 tablets one at bedtime active Not Available Not Available No t Available Vitamin D3 active Not Available Not Av ailable Not Available multivitami n active Not Available Not Available Not Available Januvia 100 mg tablet Take 1 tablet every day by oral route for 30 days. 01/04 completed Not Available Not Available Not Available Ibuprofen PM 2 tablet at bed time active Not Available Not Available No t Available Contrave 8 mg-90 mg tablet,exte nded release Take two tablets by mouth twice a day 11/11 completed Not Available Not Available Not Available Ozempic 0.25 mg or 0.5 mg (2 mg/1.5 mL) subcutaneou s pen injector INJECT 0.5 MG SQ EVERY WEEK 06/19 completed Not Available Not Available Not Available Flucelvax Quad (PF) 60 mcg (15 mcg x 4)/0.5 mL IM syringe ADM 0.5ML IM UTD 12/15 completed Not Available Not Available Not Available Ozempic 1 mg/dose (4 mg/3 mL) subcutaneou s pen injector Inject 1 mg every week by subcutane ous route as directed active Not Available Not Available No t Available Ozempic 0.25 mg or 0.5 mg (2 mg/3 mL) subcutaneou s pen injector INJECT 0.5 MG under the skin once EVERY WEEK 06/19 completed Not Available Not Available Not Available Vitals Date Recorded Body height Body mass index (BMI) Body weight Oxygen saturation Oxygen saturation in Arterial blood by Pulse oximetry Heart rate Systolic blood pressure Diastolic blood pressure Provider Name and Address Organization Details Last Updated DateTime 2 158.75 cm 27.2 kg/m2 51042.8 1 g 97 % 97 % 88 /min 148 mm[Hg] 80 mm[Hg] [facility] 2 13:34:01 Date Recorded Body height Body mass index (BMI) Body weight Heart rate Oxygen saturation Oxygen saturation in Arterial blood by Pulse oximetry Systolic blood pressure Diastolic blood pressure Provider Name and Address Organization Details Last Updated DateTime 3 158.75 cm 26.8 kg/m2 34707.2 6 g 73 /min 98 % 98 % 148 mm[Hg] 80 mm[Hg] Ashley Silvermond [facility] 3 11:32:23 Date Recorded Body height Body mass index (BMI) Body weight Heart rate Oxygen saturation Oxygen saturation in Arterial blood by Pulse oximetry Systolic blood pressure Diastolic blood pressure Provider Name and Address Organization Details Last Updated DateTime 3 158.75 cm 26.1 kg/m2 86645.8 9 g 84 /min 97 % 97 % 122 mm[Hg] 88 mm[Hg] ESPINOZA GUERRERO [address] [place], [address] 3 16:08:25 Date Recorded Body height Body mass index (BMI) Body weight Heart rate Respiratory rate Oxygen saturation Oxygen saturation in Arterial blood by Pulse oximetry Systolic blood pressure Diastolic blood pressure Provider Name and Address Organization Details Last Updated DateTime 4 158.75 cm 22.8 kg/m2 04506.7 9 g 98 /min 16 /min 99 % 99 % 114 mm[Hg] 66 mm[Hg] Mikhail Pa [facility] 4 14:53:52 Social History Question Answer Notes LastModified by Organizat ion Details LastModified Time Tobacco Smoking Status Never Smoker Not Available [facility] 12/23/2019 03:36:23 What Was The Date Of Your Most Recent Tobacco Screening? 06/20/2023 [email or web address] Information not available 06/20/2023 Do You Or Have You Ever Used Any Other Forms Of Tobacco Or Nicotine? No [email or web address] Information not available 05/29/2022 Sex: Unknown Functional Status None recorded. Mental Status None recorded. Family History Nothing Reported. Medical History No medical history recorded. Gynecological HistoryNo gynecological history recorded. Obstetrics History GPAL:G 0 P 0 0 0 0 Immunizations Vaccine Type Date Status Note Provider Nam e and Address Organization Details Recorded Time COVID-19, mRNA, LNP-S, PF, 30 mcg/0.3 mL dose 1 completed Not Available [facility] 04/04/2023 13:44:34 COVID-19, mRNA, LNP-S, PF, 30 mcg/0.3 mL dose 1 completed Not Available [facility] 04/04/2023 13:44:34 Influenza, split virus, quadrivalent, preservative 1 completed Not Available [facility] 04/04/2023 13:44:34 Influenza, split virus, quadrivalent, preservative 0 completed Not Available [facility] 04/04/2023 13:44:34 Past Encounters Encounter ID Performer Location Encounter Start Date Encounter Closed Date Diagnosis/Indication Diagnosis SNOMED-CT Code Diagnosis ICD10 Code Diagnosis Note [id number] Margret Guerrier NP, S [facility] [address] [place] [phone] 10/31/2017 15:38:08 10/31/2017 16:58:26 Hypercholesterolemia 07448847 E78.00 Pre-existi ng type 2 diabetes mellitus 972307738 E11.9 A1C 6.5 Obesity 032799446 E66.9 continue contrave Muscle pain 22977511 M79 .1 s/p fall left arm [id number] Margret Guerrier NP, [facility] [address] [place] [phone] 03/04/2018 15:46:56 03/04/2018 16:39:48 Pre-existing type 2 diabetes mellitus 181599874 E11.9 A1C 6.5 Screening colonoscopy 44 [id number] Z12.11 Hypercholesterolemia 136 59485 E78.00 Pain of le ft elbow joint [id number] 2596812 M25.522 Pain in left thumb 05526 35549 839007 M79.645 [id number] Margret Guerrier NP, [facility] Internal Medicine [address] [place] [address] 05/24/2018 15:45:39 05/27/2018 08:18:24 Trigger finger of left hand [id number] 4433003 M65.30 On examina tion - cardiac murmur 042201613 R01.1 Hypercholesterolemia 136 91459 E78.00 Pre-existi ng type 2 diabetes mellitus 718985866 E11.9 A1C 6.5 [id number] May MALINDA Gaxiola [facility] Internal Medicine [address] [facility] [address] [place] [address] 03/28/2019 15:15:18 03/28/2019 16:24:39 Hypercholesterolemia 50520261 E78.00 well controlled Pre-existi ng type 2 diabetes mellitus 857161605 E11.9 repeat labs due march Essential hypertension 83398778 I10 stable [id number] ESPINOZA GUERRERO [facility] Internal Medicine [address] [facility] [address] [address] 09/26/2019 15:50:31 09/26/2019 16:24:59 Pre-existing type 2 diabetes mellitus 831747262 E11.9 A1c looked good Hypercholesterolemia 136 39507 E78.00 labs look good cholestero l is within normal limits Overweight 962312762 E66 .3 would like to continue contrave pills labs look good so see no reason that she cannot will send in refill Plantar fasciitis 373990 003 M72.2 will try conservati ve treatment first and new supportive shoes [id number] ESPINOZA GUERRERO [facility] Internal Medicine [address] [facility] [address], nayeli Murillo [place] [address] 12/22/2019 14:46:13 12/22/2019 15:41:22 Dizziness 866493297 R42 will give her meclizine for the dizziness Diarrhea 80114048 R19.7 will test her for COVID is working, and her work would like her test will call [facility] Nausea 881260118 R11.0 with diarrhea, will start BRAT diet and drink plenty of fluids Headache 07636025 R51.9 may be due to dizziness [id number] ESPINOZA GUERRERO [facility] Internal Medicine [address] [facility] [address], [place] [address] 01/20/2020 13:17:03 01/20/2020 14:17:50 Adult health examination 161396164 Z00.00 the patient is doing well BP excellent today Atopic dermatitis 736190 01 L20.9 will send in script for patch on leg Pain in both feet 094176 7422 6090985 M79.671 will check feet with XR to start [id number] ESPINOZA GUERRERO [facility] Internal Medicine [address] [facility],[place] [address] 12/15/2020 10:46:26 12/15/2020 15:48:01 Pre-existing type 2 diabetes mellitus 140585420 E11.9 A1c looked good Diabetic p eripheral neuropathy 553783509 E11.41 will trial gabapentin for the neuropathy Hypercholesterolemia 136 41119 E78.2 labs look good cholestero l is within normal limits [id number] ESPINOZA GUERRERO [facility] Internal Medicine [address] [facility],[place] [address] 03/15/2021 09:24:39 03/15/2021 16:45:49 Diabetic peripheral neuropathy 492995026 E11.41 stable Pre-existi ng type 2 diabetes mellitus 860488964 E11.9 A1c looked good Dizziness 040730902 R42 will fu with CT and US as well to r/o other pathology ie carotid stenosis, CVA or tumor Vertigo 408171398 R42 will try a script of diazepam for the vertigo since meclizine was not helpful 13501 Arsenio Pleitez DO [facility] Internal Medicine [address] [facility],[place] [address] 06/22/2021 15:13:49 06/22/2021 16:21:29 Tuberculosis screening 047413164 Z11.1 [id number] Arsenio Pleitez DO [facility] Internal Medicine [address] [facility],[place] [address] 06/24/2021 15:22:04 06/27/2021 11:46:17 Tuberculosis screening 352979082 Z11.1 [id number] ESPINOZA GUERRERO [facility] Internal Medicine [address] [facility],[place] [address] 11/11/2021 13:16:15 11/11/2021 14:08:05 Pre-existing type 2 diabetes mellitus 835326837 E11.9 stable Hypercholesterolemia 136 82090 E78.2 stable Bilateral foot joint pain 4201127390 3567877 M79.671 will f/u with XRs since gabapentin didn't work fully for patient and numbness isn't the issuepossi ble vascular issue vs arthritis Raynaud's disease 461464 006 I73.00 will due a rheum panel Degenerati ve joint disease of hand 84609391 M19.042 will send back for injections to Dr. Palomo Overweight 742546497 E66 .3 will trial topiramate if no effect with add phentermin e given contrave no longer works Peripheral pulse absent 239170091 R09.89 will set up with US duplex arterial as well [id number] ESPINOZA GUERRERO [facility] Internal Medicine [address] [facility],[place] [address] 05/29/2022 11:13:39 05/29/2022 14:05:18 Dysuria 11980577 R30.0 will set up with bactrim and pyridium Diabetic p eripheral neuropathy 304357709 E11.41 stable Pre-existi ng type 2 diabetes mellitus 229885123 E11.9 stable [id number] ESPINOZA GUERRERO [facility] Internal Medicine [address] [facility] [address],[place] [address] 09/06/2022 16:01:44 09/08/2022 16:16:17 Hypercholesterolemia 02572610 E78.2 stable Type 2 andrew betes mellitus 59394201 E11.9 [id number] Arsenio Pleitez DO [facility] Internal Medicine [address] [facility],[place] [address] 06/20/2023 14:33:43 06/20/2023 15:25:37 Hypercholesterolemia 48156146 E78.2 here and will need to follow Type 2 andrew betes mellitus 43365773 E11.9 a1c is good at 6.4 Depression screening 171 572435 Z13.31 stable Diabetic p eripheral neuropathy 150414855 E11.41 stable Peripheral vascular disease 479899058 I73.9 on pletal and plavix Health Concerns Section Related Observation LastModified by Organization Detai ls LastModified Time None Recorded Concern Status LastModified by Organization Details LastModified Time None Recorded Advance Directives Directive None Recorded Payers Encounter Date Sequence Insurance Name Policy Number Policy Caballero Covered Member ID Caballero Member ID Guarantor Name 06/24/2021 1 [facility]: HMO [facility] (HMO) [id number] Arianne Griffiths Bassam [id number] Arianne Norman Bassam 11/11/2021 1 [facility] - MEDICARE PREFERRED (MEDICARE REPLACEMENT HMO) [id number] Arianne Griffiths Bassam [id number] Arianne Norman Danielmargareth 05/29/2022 1 [facility] - MEDICARE PREFERRED (MEDICARE REPLACEMENT HMO) [id number] Arianne Aye Banegas [id number] Arianne Norman Danielmargareth 09/06/2022 1 [facility] - MEDICARE PREFERRED (MEDICARE REPLACEMENT HMO) [id number] Arianne Aye Banegas [id number] Arianne Norman Danielmargareth 06/20/2023 1 [facility] - MEDICARE PREFERRED (MEDICARE REPLACEMENT HMO) [id number] Arianne Banegas [id number] Arianne Norman Bassam Notes Date Note Type Note Provider Name a nd Address Organization Details Recorded Time 2 text/html f/u foot pain the patient reports bilateral foot painthe patient reports that the gabapentin helped with the neuropathy (numbness and tingling) but the pain has worsenedthe patient reports that pain is only with walking the patient denies pain at rest she is having increased redness in the toes and blanching in cold weather?raynaud's vs vascular issues like PAD or PVD will fu with US arterial and XRs of the feet will also complete a rheum panel for the patient given short course of tramadol for now for the pain since she admits that she is overusing NSAIDs to control the pain APAP ineffective ESPINOZA GUERRERO [address] [place], [address], [facility] Medicine 11/11/2021 13:55:51 3 text/html c/o UTI dysuria: started sunday nightworsened into the morningreporting urgency, frequency and pain with urination hx of diabetes: may be contributing to the frequency of her UTIshas had two this year start on bactrim and pyridium ESPINOZA GUERRERO [address] [place], [address], [facility] 05/29/2022 12:01:40 3 text/html medication check HLD: is excellent with recheckwill cont the atorvastatin until she talks to her specialist will be following up with functional for the foot painalso followed up with vascular who didn't think it was related to her plaque build up in her peripheral arteries waiting to see another doctor for nerve and pressure testing ESPINOZA GUERRERO [address] [place], [address], [facility] 09/06/2022 16:48:16 4 text/html Care Management - DiabetesReported bypatient.Self Care:seeing eye doctor yearly for dilated eye exam; checking feet regularly; normal range of home blood sugars (in the low 100s); no side effects from medications Associated Symptoms:symptoms are usually well controlled; no fatigue; no dizziness; no excessive sweating; no headaches; no confusion; no increased thirst; no increased appetite; no increased urination; no blurred vision; no numbness of feet; no calluses on feet here for rechk of her DM doing well and has lost 20 lbs on ozempicand has kept it offtaking 1mg of ozempic with no se Arsenio Pleitez DO [address] [facility], [place], [address], [facility] Medicine 06/20/2023 15:19:45 OBGyn Episode No OBEpisode recorded.
[2024-04-04 13:58] LABS: Estimated Average Glucose 120 mg/dL; Hemoglobin A1C 143.0101 umol/L; Hemoglobin A1c % 5.8 % (<6.0); Total Hemoglobin (HGBA1C) 3565.0113 umol/L
== END 2024-04-04 08:40 | disposition home or self-care (01) ==
LOC: HO.MANLDS 08:39
PROVIDERS: Visit Provider Internal Medicine
DX: E11.9 Type 2 diabetes mellitus without complications (principal)
CPT/HCPCS: 36415; 83036

== ENCOUNTER 2024-04-04 15:27 | Outpatient (REF) | payer OTHER, MEDICARE, SELFPAY ==
[2024-04-04 18:25] LABS: Alanine Aminotransferase 45 U/L (0-31); Albumin Level 4.3 g/dL (3.5-5.0); Alkaline Phosphatase 76 U/L (39-117); Anion Gap 13 (12-20); Aspartate Amino Transferase 39 U/L (5-31); Bilirubin Total 0.4 mg/dL (0.0-1.0); Blood Urea Nitrogen 15 mg/dL (9-16); Calcium 9.5 mg/dL (8.4-10.2); Carbon Dioxide 22 mmol/L (22-29); Chloride 109 mmol/L (96-108); Cholesterol 113 mg/dL (<200); Estimated Glomerular Filt Rate > 60; Glucose Random 55 mg/dL (60-115); HDL Cholesterol 58 mg/dL (>40); LDL Cholesterol Calculated 47 mg/dL (<100); Potassium 3.9 mmol/L (3.3-5.1); Sodium 140 mmol/L (135-145); Total Protein 7.4 g/dL (6.5-8.0); Triglycerides 42 mg/dL (<150)
== END 2024-04-04 15:28 | disposition home or self-care (01) ==
LOC: HO.MANLDS 15:27
PROVIDERS: Visit Provider Physician Assistant
DX: E11.9 Type 2 diabetes mellitus without complications (principal)
CPT/HCPCS: 36415; 80053; 80061

== ENCOUNTER 2024-07-02 08:07 | Outpatient (REF) | payer MEDICARE, OTHER, SELFPAY ==
--- OUTSIDE RECORDS SUMMARY | 2024-07-02 08:11 | XMS_ITS | Data Portability ---
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) MDM MODERATE MUST MEET 2 OUT OF [...] Details Appointments MEDICAR E MATTHIEU WELLNES S 2025 01:30P M ESPINOZA GUERRERO Not available Not available Not available Lab CMP, serum or plasma 2024 025 [facility], [address] [place] [address], [place], [address], 04/28/2024 10:56:57 hemoglo bin A1c, QN, blood 2024 025 [facility], [address] [place], [address], 04/28/2024 10:56:57 CBC w/ auto diff 2024 025 [facility], [address] [place] [address], [address], 04/28/2024 10:56:57 HbA1c (hemogl obin A1c), blood 2023 024 [facility], [address] [place] [address], [address], 06/20/2023 15:20:20 CMP, serum or plasma 2022 023 [facility], [address] [place] [address], [address], 11/21/2022 12:08:05 lipid panel, blood 2022 023 [facility], [address] [place] [address], [address], 09/06/2022 16:50:26 hemoglo bin A1c, QN, blood 2022 023 [facility], [address] [place] [address], [address], 09/06/2022 16:50:27 CMP, serum or plasma 2022 023 [facility], [address] [place] [address], [address], 01/10/2023 12:03:34 CMP, serum or plasma 2022 024 [facility], [address] [place] [address], [id number], 06/19/2023 11:26:14 CMP, serum or plasma 2023 024 [facility], [address] [place] [address], [address], 06/19/2023 11:26:14 urinaly sis, dipstic k [address] [facility], [address], [address], [place], [address], 05/29/2022 11:52:43 urinaly sis complet e, reflex culture 2022 023 [facility], [address] [place] [address], [id number], 05/30/2022 11:19:02 LORY (antinu clear antibod ies) screen, serum 2021 [facility], [address] [place] [address], [address], 11/11/2021 13:50:33 ESR (erythr ocyte sedimen tation rate), blood 2021 [facility], [address] [place] [address], [place], [address], 11/14/2021 11:13:05 rf (rheuma toid factor) , serum 2021 [facility], [address] [place] [address], [address], 11/11/2021 13:50:33 sjogren antibod y panel (ssa, ssb, ro, la), serum 2021 [facility], [address] [place] [address], [address], 11/11/2021 13:50:33 Referral orthope dic surgeon referra l 2021 [email or web address] 10 Jamari Palomo MD, [address], [place], [address], 11/25/2021 16:27:30 Procedures None recorde d. Surgeries None recorde d. Imaging US, duplex, arteria l, lower extremi ty 2021 022 [email or web address] 10 [facility], [address], [place], [address], 11/14/2021 10:33:12 XR, foot, 3 or more view 2021 022 [facility], [address] [place], [address], 11/17/2021 11:28:51 Medication Orders Ozempic 0.25 mg or 0.5 mg (2 mg/1.5 mL) subcuta neous pen injecto r 2022 023 [email or web address] [facility] [place], [address] [place], [address], 06/20/2023 15:06:34 rosuvas tatin 40 mg tablet 2022 023 [email or web address] [facility] [place], [address] [place], [address], 09/06/2022 16:51:27 Bactrim DS 800 mg-160 mg tablet 2022 023 [email or web address] [facility] [place], [address] [place], [address], 06/20/2023 15:13:32 Pyridiu m 200 mg tablet 2022 023 [email or web address] [facility] [place], [address] [place], [address], 09/06/2022 16:11:11 topiram ate 25 mg tablet 2021 022 [email or web address] [facility] [place], [address] [place], [address], 05/29/2022 11:29:53 tramado l 50 mg tablet [address] [facility] [place], [address], [place], [address], 11/11/2021 14:01:14 Patient TargetsNo targets recorded. Patient Instructions Encounter Date Encounter Id Patient Instructions Last Modified By Organization Details Last Modified Time 09/06/2022 [id number] diabetic foot exam* [email or web address] Not available 09/13/2022 08:00:27 06/20/2023 [id number] Peripheral Arterial Disease (PAD): Care Instructions Not available 06/20/2023 15:19:12 Reason for Referral Orthopedic Surgeon Referral for Osteoarthritis of joint of hand left hand pain due to arthritis, current patient Referring Physician: Mimi De León, Internal Medicine, Encounter Date: 11/11/2021 Results Created Date Observation Date Name Description Value Unit Range Abnormal Flag Note LastModifiedBy Organization Detail LastModifiedTime 05/30/1905/29/2022 urina lysis , dipst ick Leukocytes Trace Not Available [facility] [address] [place] [address] [address] , [place], [address], 05/29/2022 11:24:42 05/30/1905/29/2022 urina lysis , dipst ick Nitrite negati ve Not Available [facility] [address] [place] [address] D, [place], [address], 05/29/2022 11:24:42 05/30/1905/29/2022 urina lysis , dipst ick Urobilinogen .2 Not Available [facility] [address], [place], [address], 05/29/2022 11:24:42 05/30/19 23 05/29/2022 urina lysis , dipst ick Protein Negati ve Not Available [facility] [address] [place] [address] D, [place], [address], 05/29/2022 11:24:42 05/30/19 23 05/29/2022 urina lysis , dipst ick pH 6.0 Not Available [facility] [address], [place], [address], 05/29/2022 11:24:42 05/30/19 23 05/29/2022 urina lysis , dipst ick Blood Small Not Available [facility] [address], [place], [address], 05/29/2022 11:24:42 05/30/19 23 05/29/2022 urina lysis , dipst ick Specific [place] 1.015 Not Available [facility] [address] [facility] [address], [place], [address], 05/29/2022 11:24:42 05/30/19 23 05/29/2022 urina lysis , dipst ick Ketone Negati ve Not Available [facility] [address], [place], [address], 05/29/2022 11:24:42 05/30/19 23 05/29/2022 urina lysis , dipst ick Bilirubin Negati ve Not Available [facility] [address], [place], [address], 05/29/2022 11:24:42 05/30/19 23 05/29/2022 urina lysis , dipst ick Glucose Negati ve Not Available [facility] [address], [place], [address], 05/29/2022 11:24:42 05/30/19 23 05/29/2022 urina lysis , dipst ick Appearance Slight ly Cloudy Not Available [facility] [address], [place], [address], 05/29/2022 11:24:42 05/30/19 23 05/29/2022 urina lysis , dipst ick Color Pale Yellow Not Available [facility] [address], [place], [address], 05/29/2022 11:24:42 11/18/19 22 11/15/2021 XR, foot, 3 or more view No observ ation record ed. [facility] (Medical Records) [address] [place], [address], 11/21/2021 15:59:37 11/18/19 22 11/15/2021 XR, foot, 3 or more view No observ ation record ed. [facility] (Medical Records) [address] [place], [address], 11/21/2021 15:59:38 01/04/20 22 12/31/2021 MAMMO , scree mary, digit al, bilat eral No observ ation record ed. [facility] [address] , [place], [address], 01/03/2022 08:29:09 02/10/20 22 12/28/2021 exerc ise sunita s test No observ ation record ed. [address] Cardi[facility], [place], [address], 02/15/2022 15:48:56 02/16/20 22 01/27/2022 stres s echoc ardio gram No observ ation record ed. [facility], [place], [address], 02/16/2022 08:52:33 10/31/19 23 04/26/2022 US, duple x, arter ial, lower extre mity No observ ation record ed. [facility] [address], [place], [address], 10/30/2022 12:46:31 01/30/20 23 01/27/2023 MAMMO , scree mary, digit al, bilat eral No observ ation record ed. [email or web address] [address] [place], [address], 01/29/2023 16:26:42 03/02/19 24 03/02/2023 MAMMO , diagn ostic , digit al, unila teral No observ ation record ed. [address] [place], [address], 03/02/2023 15:07:06 09/06/19 24 09/06/2023 MAMMO , diagn ostic , digit al, unila teral No observ ation record ed. [address] [place], [address], 04/28/2024 10:54:12 03/27/19 25 03/27/2024 MAMMO , diagn ostic , unila teral No observ ation record ed. [address] [place], [address], 04/28/2024 10:54:12 Result Notes None recorded. Problems Name Problem SNOMED Code Status Onset Date Resolution Date Notes Provider Name and Address Organization Details Recorded Time Pre-exis ting type 2 diabetes mellitus 980497457 Active 2017 Margret Guerrier NP, [address] [place], [address], [facility] 8 17:27:00 Hypercho lesterol emia 87426482 Active 2017 Margret Guerrier NP, S [address] [place], [address], [facility] 8 17:27:09 COVID-19 575048383 Completed 201901/20/2020 in the summer ESPINOZA GUERRERO [address] [place], [address], [facility] 0 13:53:32 Overweig ht 462876543 Active 2021 ESPINOZA GUERRERO [address] [place], [address], [facility] 2 11:29:29 Bilatera l foot joint pain 37865066106 893295 Active 2021 ESPINOZA GUERRERO [address] [place], [address], [facility] 2 13:39:09 Raynaud' s disease 595588300 Active 2021 ESPINOZA GUERRERO [address] [place] [address], [address], [facility] 2 13:39:49 Osteoart hritis of joint of hand 12778123 Active 2021 ESPINOZA GUERRERO [address] [place] [address], [address], [facility] 2 13:40:58 Osteoart hritis of joint of hand 66750925 Active 2021 ESPINOZA GUERRERO [address] [place] [address], [address], [facility] 2 13:41:11 Peripher al pulse absent 703488499 Active 2021 ESPINOZA GUERRERO [address] [place], [address], [facility] 2 13:48:13 Peripher al vascular disease 495019597 Active 2021 ESPINOZA GUERRERO [address] [place] [address], [address], [facility] 2 15:59:57 Type 2 diabetes mellitus 82501903 Active 2021 ESPINOZA GUERRERO [address] [place] [address], [address], [facility] 2 16:57:19 Diabetic peripher al neuropat hy 069493226 Active 2022 ESPINOZA GUERRERO [address] [place] [address], [address], [facility] 3 11:52:30 Dysuria 57557024 Active 2022 ESPINOZA GUERRERO [address] [place] [address], [address], [facility] 3 11:54:39 Candidia sis of vagina 86624940 Active 2022 Arsenio Pleitez, [address] [place] [address], [address], [facility] 3 15:10:14 Acute urinary tract infectio n 937697763 Active 2022 ESPINOZA GUERRERO [address] [place] [address], [address], [facility] 3 16:08:45 Mammogra phic calcific ation of left breast 95800553120 578498 Active 2022 Arsenio Pleitez, [address] [place] [address], [address], [facility] 3 16:51:42 Mass of left breast 60484714984 811435 Active 2023 ESPINOZA GUERRERO [address] [place] [address], [address], [facility] 4 15:18:51 Calcific ation of breast 310270414 Active 2023 ESPINOZA GUERRERO [address] [place] [address], [address], [facility] 4 16:03:40 Bilatera l vitreous floaters 62332846948 9101 Active 2023 ESPINOZA GUERRERO [address] [place], [address], [facility] 4 11:03:47 Urine consiste ncy mckennathy 65912062078 4102 Active 2024 ESPINOZA GUERRERO [address] [place], [address], [place] [facility] 5 11:57:27 Retinopa thy due to diabetes mellitus 6791819 Active 2024 ESPINOZA GUERRERO [address] [place], [address], [place] [facility] 5 10:34:39 Intermit tent claudjayda tigriffin 68282731 Active 2024 ESPINOZA GUERRERO [address] [place], [address], [facility] 5 10:36:44 Problem Notes None recorded. Procedures Surgical History None recorded. Imaging Results Imaging Date Name Status LastModified by Organization Details LastModified Time 11/15/2021 XR, foot, 3 or more view completed [facility] (Medical Records) [address] [place], [address], 11/21/2021 15:59:37 11/15/2021 XR, foot, 3 or more view completed [facility] (Medical Records) [address] [place], [address], 11/21/2021 15:59:38 12/31/2021 MAMMO, screening, digital, bilateral completed [facility] [address] [place] [address] [place], [address], 01/03/2022 08:29:09 12/28/2021 exercise stress test completed [address] [place], [address], 02/15/2022 15:48:56 01/27/2022 stress echocardiogram completed [facility] [address] [place], [address], 02/16/2022 08:52:33 04/26/2022 US, duplex, arterial, lower extremity completed [facility] [address], [place], [address], 10/30/2022 12:46:31 01/27/2023 MAMMO, screening, digital, bilateral completed [email or web address] [address] [place], [address], 01/29/2023 16:26:42 03/02/2023 MAMMO, diagnostic, digital, unilateral completed [address] [place], [address], 03/02/2023 15:07:06 09/06/2023 MAMMO, diagnostic, digital, unilateral completed [address] [place], [address], 04/28/2024 10:54:12 03/27/2024 MAMMO, diagnostic, unilateral completed [address] [place], [address], 04/28/2024 10:54:12 Procedure Notes None recorded. Medical Equipment None [...] MOUTH every 12 hours FOR 5 DAYS 05/01 /2024 completed Not Available Not Available Not Available [...] TAKE 1 TABLET BY MOUTH EVERY DAY 2024 active Not Available Not Available Not Avai lable gabapentin 100 mg capsule TAKE 1 CAPSULE BY MOUTH ONCE DAILY 05/29 completed Not Available Not Available Not Available glipizide 5 mg tablet Take 1 tablet by mouth once a day 09/06 completed Not Available Not Available Not Available rosuvastati n 40 mg tablet TAKE 1 TABLET BY MOUTH ONCE DAILY 2024 active Not Available Not Available Not Avai lable zinc 50 mg capsule Take 1 capsule [...] week by subcutane ous route as directed 2024 active Not Available Not Available Not Avai lable Ozempic 0.25 mg or 0.5 mg (2 [...] Updated DateTime 2 158.75 cm 27.2 kg/m2 34546.8 1 g 97 % 97 % 88 /min 148 mm[Hg] 80 mm[Hg] Cayla Avitia [facility] 2 13:34:01 Date Recorded Body height Body mass index (BMI) Body weight Heart rate Oxygen saturation Oxygen saturation in Arterial blood by Pulse oximetry Systolic blood pressure Diastolic blood pressure Provider Name and Address Organization Details Last Updated DateTime 3 158.75 cm 26.8 kg/m2 48908.2 6 g 73 /min 98 % 98 % 148 mm[Hg] 80 mm[Hg] Ashley Pope [facility] 3 11:32:23 Date Recorded Body height Body mass index (BMI) Body weight Heart rate Oxygen saturation Oxygen saturation in Arterial blood by Pulse oximetry Systolic blood pressure Diastolic blood pressure Provider Name and Address Organization Details Last Updated DateTime 3 158.75 cm 26.1 kg/m2 22897.8 9 g 84 /min 97 % 97 % 122 mm[Hg] 88 mm[Hg] ESPINOZA GUERRERO [address] [place], [address], [facility] 3 16:08:25 Date Recorded Body height Body mass index (BMI) Body weight Heart rate Respiratory rate Oxygen saturation Oxygen saturation in Arterial blood by Pulse oximetry Systolic blood pressure Diastolic blood pressure Provider Name and Address Organization Details Last Updated DateTime 4 158.75 cm 22.8 kg/m2 91426.7 9 g 98 /min 16 /min 99 % 99 % 114 mm[Hg] 66 mm[Hg] Mikhail Pa [facility] 4 14:53:52 Date Recorded Body height Body mass index (BMI) Body weight Heart rate Oxygen saturation Oxygen saturation in Arterial blood by Pulse oximetry Systolic blood pressure Diastolic blood pressure Provider Name and Address Organization Details Last Updated DateTime 5 158.75 cm 22.7 kg/m2 78284.6 4 g 96 /min 95 % 95 % 110 mm[Hg] 66 mm[Hg] Ashley Pope [facility] 5 10:25:49 Social History Question Answer Notes LastModified by Organizat ion Details LastModified Time Tobacco Smoking Status Never Smoker Not Available [facility] 12/23/2019 03:36:23 What Was The Date Of Your Most Recent Tobacco Screening? 06/20/2023 [email or web address] Information not available 06/20/2023 Sex: Unknown Functional Status Question Answer Note LastModified by Organization D etails LastModified Time Do you or have you ever used any other forms of tobacco or nicotine? No [email or web address] Information not available 05/29/2022 Mental Status None recorded. Family History Nothing Reported. Medical History No medical history recorded. Gynecological HistoryNo gynecological history recorded. Obstetrics History GPAL:G 0 P 0 0 0 0 Immunizations Vaccine Type Date Status Note Provider Nam e and Address Organization Details Recorded Time COVID-19, mRNA, LNP-S, PF, 30 mcg/0.3 mL dose 1 completed Not Available [facility] 04/04/2023 13:44:34 COVID-19, mRNA, LNP-S, PF, 30 mcg/0.3 mL dose 1 completed Not Available [facility] 04/04/2023 13:44:34 Influenza, split virus, quadrivalent, preservative 1 completed Not Available [facility] 04/04/2023 13:44:34 Influenza, split virus, quadrivalent, preservative 0 completed Not Available [facility] 04/04/2023 13:44:34 Past Encounters Encounter ID Performer Location Encounter Start Date Encounter Closed Date Diagnosis/Indication Diagnosis SNOMED-CT Code Diagnosis ICD10 Code Diagnosis Note [id number] DO [facility] [address] [facility],[place] [address] 10/31/2017 15:38:08 10/31/2017 16:58:26 Hypercholesterolemia 13661508 E78.00 Pre-existi ng type 2 diabetes mellitus 097355724 E11.9 A1C 6.5 Obesity 149497403 E66.9 continue contrave Muscle pain 04882984 M79 .1 s/p fall left arm [id number] [facility] [address] [facility],[place] [address] 03/04/2018 15:46:56 03/04/2018 16:39:48 Pre-existing type 2 diabetes mellitus 662574343 E11.9 A1C 6.5 Screening colonoscopy 44 8436354 Z12.11 Hypercholesterolemia 136 95733 E78.00 Pain of le ft elbow joint 4937052677 1921609 M25.522 Pain in left thumb 65909 71250 825043 M79.645 [id number] [facility] [address],[place] [address] 05/24/2018 15:45:39 05/27/2018 08:18:24 Trigger finger of left hand 2211556125 8155606 M65.30 On examina tion - cardiac murmur 461015160 R01.1 Hypercholesterolemia 136 86009 E78.00 Pre-existi ng type 2 diabetes mellitus 292177411 E11.9 A1C 6.[id number] [facility] [address] [facility],[place] [address] 03/28/2019 15:15:18 03/28/2019 16:24:39 Hypercholesterolemia 71965503 E78.00 well controlled Pre-existi ng type 2 diabetes mellitus 164477191 E11.9 repeat labs due march Essential hypertension 47678123 I10 stable [id number] [facility] [address] [facility],[place] [address] 09/26/2019 15:50:31 09/26/2019 16:24:59 Pre-existing type 2 diabetes mellitus 478394062 E11.9 A1c looked good Hypercholesterolemia 136 93521 E78.00 labs look good cholestero l is within normal limits Overweight 716219245 E66 .3 would like to continue contrave pills labs look good so see no reason that she cannot will send in refill Plantar fasciitis 134064 003 M72.2 will try conservati ve treatment first and new supportive shoes [id number] [facility] [address] [facility], [place] [address] 12/22/2019 14:46:13 12/22/2019 15:41:22 Dizziness 402909344 R42 will give her meclizine for the dizziness Diarrhea 33807357 R19.7 will test her for COVID is working, and her work would like her test will call [facility] Nausea 888403665 R11.0 with diarrhea, will start BRAT diet and drink plenty of fluids Headache 95926207 R51.9 may be due to dizziness [id number] [facility] [address] [facility],[place] [address] 01/20/2020 13:17:03 01/20/2020 14:17:50 Adult health examination 987731248 Z00.00 the patient is doing well BP excellent today Atopic dermatitis 962572 01 L20.9 will send in script for patch on leg Pain in both feet 695845 6124 8474807 M79.671 will check feet with XR to start [id number] [facility] [address] [facility], [place] [address] 12/15/2020 10:46:26 12/15/2020 15:48:01 Pre-existing type 2 diabetes mellitus 308455366 E11.9 A1c looked good Diabetic p eripheral neuropathy 449258116 E11.41 will trial gabapentin for the neuropathy Hypercholesterolemia 136 06385 E78.2 labs look good cholestero l is within normal limits [id number] [facility] [address] [facility], [place] [address] 03/15/2021 09:24:39 03/15/2021 16:45:49 Diabetic peripheral neuropathy 353084832 E11.41 stable Pre-existi ng type 2 diabetes mellitus 659541325 E11.9 A1c looked good Dizziness 594417270 R42 will fu with CT and US as well to r/o other pathology ie carotid stenosis, CVA or tumor Vertigo 738093692 R42 will try a script of diazepam for the vertigo since meclizine was not helpful [id number] [facility] [address] [facility] [address] 06/22/2021 15:13:49 06/22/2021 16:21:29 Tuberculosis screening 882526656 Z11.[id number] [facility] [address] [facility] [address] 06/24/2021 15:22:04 06/27/2021 11:46:17 Tuberculosis screening 522353808 Z11.[id number] [facility] [address] [facility],[place] [address] 11/11/2021 13:16:15 11/11/2021 14:08:05 Pre-existing type 2 diabetes mellitus 314240836 E11.9 stable Hypercholesterolemia 136 24925 E78.2 stable Bilateral foot joint pain 4692356615 4202314 M79.671 will f/u with XRs since gabapentin didn't work fully for patient and numbness isn't the issuepossi ble vascular issue vs arthritis Raynaud's disease 908847 006 I73.00 will due a rheum panel Osteoarthr itis of joint of hand 27024903 M19.042 will send back for injections to Dr. Palomo [facility] 645542052 E66 .3 will trial topiramate if no effect with add phentermin e given contrave no longer works Peripheral pulse absent 610436109 R09.89 will set up with US duplex arterial as well [id number] [facility] Internal [facility] [address] [facility] [place] [facility] [place] [address] 05/29/2022 11:13:39 05/29/2022 14:05:18 Dysuria [id number] R30.0 will set up with bactrim and pyridium Diabetic p eripheral neuropathy 639732142 E11.41 stable Pre-existi ng type 2 diabetes mellitus 673837347 E11.9 [address] [facility] Internal Medicine [address] [facility], [place] [address] 09/06/2022 16:01:44 09/08/2022 16:16:17 Hypercholesterolemia 29583074 E78.2 stable Type 2 andrew betes mellitus 23821232 E11.[id number] [facility] Internal Medicine [address] [facility], [place] [address] 06/20/2023 14:33:43 06/20/2023 15:25:37 Hypercholesterolemia 69569459 E78.2 here and will need to follow Type 2 andrew betes mellitus 23544998 E11.9 a1c is good at 6.4 Depression screening 171 998188 Z13.31 stable Diabetic p eripheral neuropathy 587387263 E11.41 stable Peripheral vascular disease 656178599 I73.9 on pletal and plavix [id number] Arsenio Pleitez [facility] Internal [facility] [address] [facility], [place] [facility] [place] [address] 04/28/2024 10:13:11 04/28/2024 11:41:35 Intermittent claudication 17725698 I73.9 working with cardio Type 2 andrew betes mellitus 19452568 E11.9 stable, number looks great Adult heal th examination 556575693 Z00.00 the patient is doing well BP excellent today Health Concerns Section Related Observation LastModified by Organization Detai ls LastModified Time None Recorded Concern Status LastModified by Organization Details LastModified Time None Recorded Advance Directives Directive None Recorded Payers Encounter Date Sequence Insurance Name Policy Number Policy Caballero Covered Member ID Caballero Member ID Guarantor Name 11/11/2021 1 [facility] - MEDICARE PREFERRED (MEDICARE REPLACEMENT HMO) [id number] Arianne Banegas [id number] Arianne Banegas 05/29/2022 1 [facility] MEDICARE PREFERRED (MEDICARE REPLACEMENT HMO) [id number] Arianne Banegas [id number] Arianne Banegas 09/06/2022 1 [facility] MEDICARE PREFERRED (MEDICARE REPLACEMENT HMO) [id number] Arianne Sanchezka [id number] Arianne Norman Bassam 06/20/2023 1 [facility] - MEDICARE PREFERRED (MEDICARE REPLACEMENT HMO) [id number] Arianne Griffiths Bassam [id number] Arianne Norman Bassam 04/28/[address] [facility] [id number] Lucas Castro Bassam [id number] Arianne Norman Bassam 04/28/2024 1 MEDICARE B: [facility] MEDICARE Arianne Griffiths Bassam [id number] Arianne Norman Bassam Notes Date Note Type [...] the pain APAP ineffective ESPINOZA GUERRERO [address] [place], [address], [facility] Internal Medicine 11/11/2021 13:55:51 3 text/html c/o UTI dysuria: started sunday nightworsened into the morningreporting urgency, frequency and pain with urination hx of diabetes: may be contributing to the frequency of her UTIshas had two this year start on bactrim and pyridium ESPINOZA GUERRERO [address] [place], [address], [facility] Internal Medicine 05/29/2022 12:01:40 3 text/html medication [...] nerve and pressure testing ESPINOZA GUERRERO [address] [place], [address], [facility] 09/06/2022 16:48:16 4 text/html Care [...] with no se Arsenio Pleitez DO [address] [place], [address], [facility] Internal Medicine 06/20/2023 15:19:45 5 text/html Medicare Annual Wellness VisitReported bypatient.Diet and Nutrition:healthy diet; discussed vitamin and supplement use; discussed portion control; discussed maintaining calcium balance; discussed diet improvement Fracture Risk:no history of fractures; no recent explained fracture; no sudden unexplained fractures; no previous musculoskeletal injuries Physical Activity:exercises on a regular basis; recent increase in physical activity; good physical condition Depression Risk:never feels sad, empty, or tearful; no loss of interest in activities; no significant changes in weight; no sleep disturbances or insomnia; no agitation; no loss of energy; no feelings of worthlessness or guilt; no thoughts of suicide; no history of depression; no history of mood disorders Orientation:no disorientation to time; no disorientation to date; no disorientation to place Concentration and Memory:no decreased concentrating ability; no memory lapses or loss; does not forget words Speech/Motor difficulties:no speech difficulties; no difficulty expressing formulated concepts; no difficulty with fine manipulative tasks; no difficulty writing/copying; no slowed reaction time; does not knock things over when trying to pick them up Hearing:no loss of hearing Vision:no vision problems Activities of Daily Living:able to bathe with limited or no assistance; able to contol urination and bowels; able to dress with limited or no assistance; able to feed self with limited or no assistance; able to get out of chair or bed with limited or no assistance; able to groom with limited or no assistance; able to toilet with limited or no assistance Instrumental Activities of Daily Living:able to do house work with limited or no assistance; able to grocery shop with limited or no assistance; able to manage medications with limited or no assistance; able to manage money with limited or no assistance; able to prepare meals with limited or no assistance; able to use the phone with limited or no assistance Falls Risk Assessment:no frequent falls while walking; no fall in the past year; no fall since last visit; no dizziness/vertigo Home Safety:no unsafe damien hazzards; no unsafe stairs; no unsafe gas appliances; working smoke/CO detectors; wears protective head gear for biking/high velocity; use of seatbelts; practicing 'safer sex'; no vision or hearing loss while driving; no fire arms; has hand bars in the bathroom/shower; good lighting in the home the patient reports that she has new diabetic retinopathythe patient reports that she is working with cardio for her claudication doing well overallglucose looks great ESPINOZA GUERRERO [address] [facility], [place], [address], [facility] 04/28/2024 10:57:25 OBGyn Episode No OBEpisode recorded.
[2024-07-02 13:32] LABS: MANUAL DIFF FLAG NO
[2024-07-02 13:59] LABS: Basophils Absolute Auto 0.1 X10*3/uL (0.0-0.2); Basophils Percent Auto 1.1 % (0-2); Eosinophils Absolute Auto 0.3 X10*3/uL (0.0-0.4); Eosinophils Percent Auto 4.5 % (0-4); Hematocrit 39.3 % (37.0-47.0); Hemoglobin 13.3 g/dl (12.0-16.0); Lymphocytes Absolute Auto 1.3 X10*3/uL (1.2-4.9); Lymphocytes Percent Auto 23.3 % (20-40); Mean Corpuscular HGB Conc 33.8 g/dl (31.0-35.0); Mean Corpuscular Hemoglobin 31.2 pg (27.0-33.0); Mean Corpuscular Volume 92.3 fL (80.0-98.0); Mean Platelet Volume 10.8 fL (9.4-12.3); Monocytes Absolute Auto 0.5 X10*3/uL (0.1-1.2); Monocytes Percent Auto 8.6 % (2-11); Neutrophils Absolute Auto 3.5 x10*3/uL (2.0-8.3); Neutrophils Percent Auto 62.5 % (45-73); Platelet Count 214 X10*3/uL (160-400); Red Blood Count 4.26 X10*6/uL (4.20-5.50); Red Cell Distribution Width 14.6 % (11.0-16.0); White Blood Count 5.6 X10*3/uL (4.8-10.8)
[2024-07-02 14:12] LABS: Estimated Average Glucose 120 mg/dL; Hemoglobin A1C 144.3639 umol/L; Hemoglobin A1c % 5.8 % (<6.0); Total Hemoglobin (HGBA1C) 3637.8249 umol/L
[2024-07-02 14:43] LABS: Alanine Aminotransferase 24 U/L (0-31); Albumin Level 4.1 g/dL (3.5-5.0); Alkaline Phosphatase 75 U/L (39-117); Anion Gap 17 (12-20); Aspartate Amino Transferase 32 U/L (5-31); Bilirubin Total 0.5 mg/dL (0.0-1.0); Blood Urea Nitrogen 12 mg/dL (9-16); Calcium 9.2 mg/dL (8.4-10.2); Carbon Dioxide 19 mmol/L (22-29); Chloride 110 mmol/L (96-108); Estimated Glomerular Filt Rate 60; Glucose Random 106 mg/dL (60-115); Potassium 3.3 mmol/L (3.3-5.1); Sodium 143 mmol/L (135-145); Total Protein 6.8 g/dL (6.5-8.0)
== END 2024-07-02 08:08 | disposition home or self-care (01) ==
LOC: HO.MANLDS 08:07
PROVIDERS: Visit Provider Physician Assistant
DX: E11.9 Type 2 diabetes mellitus without complications (principal)
CPT/HCPCS: 36415; 80053; 83036; 85025

== ENCOUNTER 2024-09-23 08:59 | Outpatient (REF) | payer MEDICARE, OTHER, SELFPAY ==
--- OUTSIDE RECORDS SUMMARY | 2024-09-23 09:15 | XMS_ITS | Patient Health Record ---
Author Organization [facility] Address [address] [place] [address] Care Team Providers Care Research And Insights Executive Name Role Phone Arsenio Pleitez Primary Care Provider Don Roldan Unavailable [phone] Reason For Referral No Information Medications Medication SIG (Take, Route, Fr equency, Duration) Notes Start Date End Date Status Vitamin C 500 MG 1 tablet Orally Once a day for 30 day(s) Active Lisinopril 10 MG 1 tablet Orally Once a day for 30 day(s) Active metFORMIN HCl 500 MG 1 tablet with a christiana l Orally Once a day for 30 day(s) Active Simvastatin 20 MG 1 tablet in the even ing Orally Once a day for 30 day(s) Active Contrave 8-90 MG 2 tablets Orally Twi ce a day for 30 day(s) Active glipiZIDE 5 MG 1 tablet Orally Once a day for 30 day(s) Active Immunizations Vaccine Route Administration Date Status Comme nts Influenza Unknown 06/14/2018 Refused Social History Tobacco Use: Social History Observation Description Date Details (start date - stop date) Never Smoker NA - NA Tobacco Use/Smoking Question Answer Notes Patient is a nonsmoker Alcohol Screen Question Answer Notes Did you have a drink contain ing alcohol in the past year? Yes How often did you have a dri nk containing alcohol in the past year? Never (0 point) How many drinks did you have on a typical day when you were drinking in the past year? 1 or 2 drinks (0 point) How often did you have 6 or more drinks on one occasion in the past year? Never (0 point) Points 0 Interpretation Negative Section Notes: Nonsmoker; no sig alcohol Problems Problem Type SNOMED Code ICD Code Onset Dates Problem Status W/U Status Risk Notes Problem [id number] Encounter for screening for malignant neoplasm of colon (Z12.11) Active confirmed Problem [id number] Preprocedural examination (Z01.818) Active confirmed Plan Of Treatment Future Test Test Name Order Date COLONOSCOPY 06/14/2018 Insurance Providers Payer Name Payer Address Payer Phone Subscriber Number Group Number Insured Name Patient Relationship to Insured Coverage Start Date Coverage End Date O BLUE [employer] CLAIMS [address] [place] [address] [id number] RODOLFO GIPSON Self - patient is the insured [facility] [address] [address] [place] [address] [id number] RODOLFO GIPSON Self - patient is the insured Medical (General) History Medical History History ICD Code NIDDM Hypertension Carcinoid of the appendix as below Denies FL,CVA,Lung disease,renal disease Hyperlipidemia Neg. colonoscopy [place] [address] 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
--- OUTSIDE RECORDS SUMMARY | 2024-09-23 09:15 | XMS_ITS | Encounter Summary ---
Author Organization [facility] Address [address] [facility] [address] [facility] [address] [place] [address] Phone Care Team Providers Care Drilling Engineer Name Role Phone Mimi De León Primary Care Provider [phone] Arsenio Pleitez DO Unavailable Arsenio Pleitez DO Primary Care Provider [phone] Reason for Referral * - Closed Specialty Diagnoses / Procedures Referred By Sandrine burton Referred To Contact Radiology Diagnoses PAD (peripheral artery disease) Procedures US Lower Extremity Arteries (ERLINDA) Physio Complete Bilat Alli Winters DO Phone: tel: fax: [email or web address] Referral ID Status Reason Start Date Expiration Date Visits Re quested Visits Authorized [id number] Closed 10/27/2022 10/27/2023 1 1 Encounter Details Date Type Department Care Team (Late st Contact Info) Description 10/27/2022 Ancillary Orders [facility] [address] [facility] 3rd [place] [address] Alli Winters DO [address] [facility] [address] [place] [address] [email or web address] PAD (peripheral artery disease) Social History Tobacco Use Types Packs/Day Years Used Date Smoking Tobacco: Former Education Answer Date Recorded Are you interested in more education? Not on luis e 06/17/2022 Are you concerned about learning? Not on file 06/17/2022 No 06/17/2022 No 06/17/2022 Digital Access Answer Date Recorded No 07/16/2022 No 07/16/2022 Reliable internet access at home? Not on file 07/16/2022 Device with a working camera? Not on file Comments Unknown Sex and Gender Information Value Date Recorded Sex Assigned at Not on file Legal Sex Female 3:12 PM EDT Gender Identity Not on file Sexual Orientation Not on file documented as of this encounter Plan of Treatment Upcoming Encounters Date Type Department Care Team (Late st Contact Info) Description 12/10/2024 12:45 PM EDT Office Visit [facility] [address] [place] [address] [address] Floor, [address] [place] [address] Alli Winters DO [address] [place] [address] [place] [id number] [email or web address] documented as of this encounter Results * US Lower Extremity Arteries (ERLINDA) Physio Complete Bilat (10/27/2022 10:21 AM EDT) Anatomical Region Laterality Modality Ultrasound Narrative 10/27/2022 12:19 PM EDT See scanned document. Procedure Note Neel Mcgee MD - 10/27/2022 See scanned document. us Alli Winters DO CV US VASCULAR Final Result documented in this encounter Visit Diagnoses Diagnosis Claudication in peripheral vascular disease PAD (peripheral artery disease) Unspecified peripheral vascular disease PAD (peripheral artery disease) Unspecified peripheral vascular disease documented in this encounter Care Teams Drilling Engineer Relationship Specialty Start Date End Date Mimi De León PA [address] [facility] [place] [address] [place] [address] PCP - General 11/14/21 07/08/23 Arsenio Pleitez DO [address] [facility] [address] [place] [address] [email or web address] PCP - General Internal Medicine 07/09/23 Arsenio Plietez DO [address] [place] [address] [email or web address] Insurance Assigned Provider 05/26/23 05/25/24 documented as of this encounter Additional Source Comments The information contained in this document represents components of the legal health record. It is not the complete legal health record.[email or web address]
[2024-09-23 13:24] LABS: MANUAL DIFF FLAG NO
[2024-09-23 13:43] LABS: Hematocrit 33.1 % (37.0-47.0); Hemoglobin 11.6 g/dl (12.0-16.0); Imm Gran Abs Auto 0.01 X10*3/uL (0.00-0.03); Imm Gran Pct Auto 0.2 % (0.0-0.4); Lymphocytes Absolute Auto 1.2 X10*3/uL (1.2-4.9); Mean Corpuscular HGB Conc 35.0 g/dl (31.0-35.0); Mean Corpuscular Hemoglobin 31.5 pg (27.0-33.0); Mean Corpuscular Volume 89.9 fL (80.0-98.0); NRBC Abs Auto 0.000 X10*3/uL (0.0-0.012); NRBC Pct Auto 0.0 /100WBC (0.0-0.2); Platelet Count 201 X10*3/uL (160-400); Red Blood Count 3.68 X10*6/uL (4.20-5.50); White Blood Count 5.1 X10*3/uL (4.8-10.8)
[2024-09-23 13:50] LABS: Hemoglobin A1C 129.0074 umol/L; Total Hemoglobin (HGBA1C) 3064.4444 umol/L
[2024-09-23 13:53] LABS: Alanine Aminotransferase 27 U/L (0-31); Albumin Level 4.0 g/dL (3.5-5.0); Alkaline Phosphatase 62 U/L (39-117); Anion Gap 11 (12-20); Aspartate Amino Transferase 27 U/L (5-31); Blood Urea Nitrogen 13 mg/dL (9-16); Calcium 8.6 mg/dL (8.4-10.2); Carbon Dioxide 28 mmol/L (22-29); Chloride 109 mmol/L (96-108); Estimated Glomerular Filt Rate > 60; Potassium 3.7 mmol/L (3.3-5.1); Sodium 144 mmol/L (135-145); Total Protein 6.3 g/dL (6.5-8.0)
== END 2024-09-23 09:00 | disposition home or self-care (01) ==
LOC: HO.MANLDS 08:59
PROVIDERS: Visit Provider Physician Assistant
DX: E11.9 Type 2 diabetes mellitus without complications (principal)
CPT/HCPCS: 36415; 80053; 83036; 85025

== ENCOUNTER 2024-12-29 08:01 | Outpatient (REF) | payer MEDICARE, OTHER, SELFPAY ==
--- OUTSIDE RECORDS SUMMARY | 2023-07-09 16:45 | XMS_ITS | Encounter Summary ---
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 Name Role Phone Arsenio Pleitez DO Unavailable Arsenio Pleitez DO Primary Care Provider [phone] Encounter Details Date Type Department Care Team (Late st Contact Info) Description 07/09/2023 5:45 PM EDT Hospital Encounter [facility] [address] [place] [id number] Sharri Medley, [employer] INSTRUCTOR [address] [place] [address] [email or web address] History Tobacco Use Types Packs/Day Years Used Date Smoking Tobacco: Never Smokeless Tobacco: Never Alcohol Use Standard Drinks/Week Comments Never 0 (1 standard drink = 0.6 oz pur e alcohol) Education Answer Date Recorded Are you interested in more education? Not on luis e 06/17/2022 Are you concerned about learning? Not on file 06/17/2022 No 06/17/2022 No 06/17/2022 Digital Access Answer Date Recorded No 07/16/2022 No 07/16/2022 Reliable internet access at home? Not on file 07/16/2022 Device with a working camera? Not on file Intimate Partner Violence Answer Date R ecorded Are you denied basic needs s uch as food, clothing, or medical care? No 01/22/2023 In the past 12 months have y ou been in a relationship with a person who hurts, threatens, or tries to control you? No 01/22/2023 Are you denied basic needs s uch as food, clothing, or medical care? No 01/22/2023 In the past 12 months have y ou been in a relationship with a person who hurts, threatens, or tries to control you? No 01/22/2023 Comments Unknown Sex and Gender Information Value Date Recorded Sex Assigned at Not on file Legal Sex Female 3:12 PM EDT Gender Identity Not on file Sexual Orientation Not on file documented as of this encounter Plan of Treatment Upcoming Encounters Date Type Department Care Team (Latest Contact Info) Description 01/06/2025 12:30 PM EST Telemedicine - audio only [facility] [address] Floor, [address] [place] [address] [phone] Cassie Marcelo, KYM [address] [facility], [address] [address] 06/15/2025 9:30 AM EDT Office Visit [facility] [address] Floor, [address] [place] [address] [phone] Alli Winters, [address] [facility] [address] [place] [phone] documented as of this encounter Procedures Procedure Name Priority Date/Time Associated Diagnosis Comments XR TOES 2 OR MORE VIEWS (RIGHT) Urgent/patient waiting 07/09/2023 5:59 PM EDT Pain and swelling of toe, right documented in this encounter Results * XR Toes 2 or More Views (Right) (07/09/2023 5:59 PM EDT) Anatomical Region Laterality Modality Foot Right Computed Radiogr aphy 07/09/2023 6:1 7 PM EDT Impressions 07/09/2023 6:49 PM EDT No fracture or dislocation. ATTESTATION: I, Devang Bledsoe as teaching physician, have reviewed the images for this case and if necessary edited the report originally created by Igor Neves. Narrative 07/09/2023 6:49 PM EDT XR TOES 2 OR MORE VIEWS (RIGHT) Referring clinician's provided indication for this examination in [facility]: Pain; Swelling / Erythema; stubbed toe 6 weeks ago, ongoing swelling & pain, ? fx COMPARISON: None FINDINGS: No fracture. Normal alignment. Normal joint spaces. Soft tissue swelling along lateral aspect of the forefoot. Atherosclerotic vascular calcifications. Procedure Note Devang Bledsoe MBBS - 07/09/2023 XR TOES 2 OR MORE VIEWS (RIGHT) Referring clinician's provided indication for this examination in Epic:Pain; Swelling / Erythema; stubbed toe 6 weeks ago, ongoing swelling &pain, ? fx COMPARISON: None FINDINGS: No fracture. Normal alignment. Normal joint spaces. Soft tissue swellingalong lateral aspect of the forefoot. Atherosclerotic vascularcalcifications. IMPRESSION: No fracture or dislocation. ATTESTATION: Devang Shannon as teaching physician, have reviewed theimages for this case and if necessary edited the report originally createdby Igor Neves. us Sharri B Whitehill ZUMBA INSTRUCTOR IMG XR LOWER EXTREMITY Nilsa l Result documented in this encounter Visit Diagnoses Not on filedocumented in this encounter Care Teams Mallet Cutter Relationship Specialty Start Date End Date Arsenio Pleitez DO [address] [place] [address] PCP - General Internal Medicine 07/09/23 Arsenio Pleitez DO [address] [place] [address] Insurance Assigned Provider 05/26/23 05/25/24 documented as of this encounter Additional Source Comments The information contained in this document represents components of the legal health record. It is not the complete legal health record.[facility]
--- OUTSIDE RECORDS SUMMARY | 2024-12-29 08:08 | XMS_ITS | Clinical Summary ---
Author Organization [facility] Address [address] [address] Phone Care Team Providers Care Referral Clerk Name Role Phone Arsenio Pleitez DO Primary Care Provider [phone] Allergies No known active allergies Medications metFORMIN (GLUCOPHAGE) 500 MG tablet Take 500 mg by mouth 2 (two) times a day with meals. Active glipiZIDE (GLUCOTROL) 10 MG tablet Take 10 mg by mouth daily. Active lisinopril (PRINIVIL,ZESTRI L) 10 MG tablet Take 10 mg by mouth daily. Active ascorbic acid, vitamin C, (VITAMIN C) 1000 MG tablet Take 100 mg by mouth daily. 100 mg Active apple cider vinegar 600 mg Cap daily. Active blood sugar diagnostic (ONETOUCH ULTRA TEST) Strp strips OneTouch Ultra Test strips USE TO test blood sugar TWICE A DAY Active therapeutic multivitamin tablet Take 1 tablet by mouth daily. Active zinc sulfate 50 mg zinc (220 mg) Tab Take 100 mg by mouth daily. 1 tab twice a week Active cholecalciferol (VITAMIN D3) 400 unit tablet Take by mouth daily. 50 mcg Active cyanocobalamin, vitamin B-12, 1000 MCG tablet Take 1,000 mcg by mouth daily. 5,000 mcg daily Active magnesium 250 mg Tab Take 150 mg by mouth daily. Reamg liquid Active rosuvastatin (CRESTOR) 40 MG tablet Take 1 tablet by mouth every morning. 10/10/19 23 Active aspirin 81 MG EC tablet Take 81 mg by mouth daily. Active OZEMPIC 1 mg/dose (4 mg/3 mL) subcutaneous injection pen 1 mg every 7 days. 06/22/19 24 Active clopidogrel (PLAVIX) 75 mg tabletIndication s:Medication refill Take 1 tablet (75 mg total) by mouth daily. 90 tablet 3 01/24/20 24 Active cilostazol (PLETAL) 100 MG tabletIndication s:Peripheral vascular disease Take 1 tablet (100 mg total) by mouth 2 (two) times a day. 180 tablet 3 10/01/19 Active atorvastatin (LIPITOR) 80 MG tablet 80 mg. Discontinued topiramate (TOPAMAX) 25 MG tablet Take 25 mg by mouth daily. Discontinued(No longer taking) traMADoL (ULTRAM) 50 mg tablet Take 50 mg by mouth every 8 (eight) hours as needed. 11/12/19 Discontinued(No longer taking) gabapentin (NEURONTIN) 100 MG capsule Take 100 mg by mouth daily. 11/15/19 Discontinued(No longer taking) semaglutide (OZEMPIC) 0.25 mg or 0.5 mg(2 mg/1.5 mL) subcutaneous injection pen 0.5 mg. 1 mg once a week Discontinued bacillus coagulans-inulin 1 billion-250 cell-mg Cap Take 250 mg by mouth daily. Discontinued cefpodoxime (VANTIN) 100 MG tablet Take 1 tablet by mouth 2 (two) times a day. 01/18/20 Discontinued fluconazole (DIFLUCAN) 150 MG tablet Take 150 mg by mouth daily. 01/31/20 Discontinued(No longer taking) phenazopyridine (PYRIDIUM) 200 MG tablet 01/18/20 Discontinued sulfamethoxazole -trimethoprim (BACTRIM DS) 800-160 mg per tablet 01/25/20 Discontinued(No longer taking) Active Problems Problem Noted Date Diagnosed Date Tachycardia 12/12/2024 Assessment & Plan (12/12/2024 8:19 AM EDT): She has no new tachycardia here in the office today 107 bpm. EKG confirms sinus tachycardia at 105 bpm. She reports having some palpitations at night but never any rapid or fast heart rate. For any other 24-hour monitor to assess. She will likely need her lisinopril adjusted if she needs to go on a beta-ludmila to lower her heart rate however at this time we will just continue meds as they are. Peripheral vascular disease 11/29/2021 Assessment & Plan (12/12/2024 8:18 AM EDT): She has severe distal disease which is being treated medically. It was felt best that she not had a bypass unless absolutely necessary. She has been exercising more with some symptoms. She is on Pletal 100 mg twice daily along with clopidogrel 75 mg daily which she will continue without change. She is encouraged to continue exercising. Assessment & Plan (06/04/2024 9:23 AM EDT): Severe distal disease we are treating this medically Assessment & Plan (12/03/2023 8:24 AM EDT): At this time we will hold off on any type of bypass surgery I will follow-up with her in 6 months time she is doing reasonably well Assessment & Plan (08/03/2023 8:44 AM EDT): As mentioned we are going to increase the dose of Pletal to 100 mg twice a day I will reevaluate in 4 months Assessment & Plan (02/05/2023 1:54 PM EST): As mentioned we are going to bring this patient back for an antegrade stick in the right lower extremity we will load her with Plavix prior I ordered the Plavix just now she will get it on her way home Assessment & Plan (07/28/2022 8:02 AM EDT): She has definite evidence of PVD but I am not convinced that what she has is causing her symptoms. I am going to check with ABIs and an ultrasound as we can easily follow these longitudinally. I will follow-up with her thereafter. Assessment & Plan (11/29/2021 9:39 AM EDT): Patient came with symptoms of intermittent claudication of her leg. She has pain in both of her feet and both of lower calfs. She does not have palpable pulses in her dorsalis pedis posterior tibialis and popliteal both sides. She has severe symptoms and her symptoms are not relieved. At this point she is scheduled for duplex arterial scan in January because of her severity of symptoms I think she will need a CT angiogram for definitive diagnosis and intervention. Try to schedule I in the meantime she will continue her present regimen of baby aspirin and cilostazol. Is also on statin. Discussed use of Plavix. 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 I explained the risk benefits and alternatives to regarding this. Assessment & Plan (11/29/2021 9:40 AM EDT): Her pain is mostly in her feet and legs. Feet are warm but red and her pulses are absent. She started cilostazol but she stopped because of headache I told her to start taking cilostazol again with food maybe half tablet twice a day. She is on baby aspirin and we may think about adding a another platelet inhibitor like Plavix. Benign essential hypertension 11/29/2021 Assessment & Plan (12/12/2024 8:18 AM EDT): Her blood pressure is on the lower side today at 100/58. She also noted to be tachycardic. She is on lisinopril 10 mg daily which she will continue without change. She is staying hydrated. Blood pressure Assessment & Plan (06/04/2024 9:23 AM EDT): Well-controlled to the guidelines Assessment & Plan (04/04/2023 1:42 PM EST): Well-controlled to the guidelines Assessment & Plan (12/04/2022 8:09 AM EDT): Well-controlled to the guidelines. Assessment & Plan (11/29/2021 9:41 AM EDT): She has hypertension her blood pressure is still high. He is on lisinopril 10 mg daily please increase it to 20 mg daily and think about adding a calcium ludmila may be Her blood pressure and if blood pressure remains consistently over 140 / 90 she blood pressure medication should be adjusted. Mixed hyperlipidemia 11/29/2021 Assessment & Plan (12/12/2024 8:18 AM EDT): PCP is monitoring lipid panel. Continue rosuvastatin 40 mg daily Assessment & Plan (12/03/2023 8:24 AM EDT): LDL should be less than 70 mg/dL he A1c should be less than 7 Assessment & Plan (08/03/2023 8:44 AM EDT): A1c should be less than 7 and LDL less than 70 mg/dL by the guidelines. Assessment & Plan (04/04/2023 1:42 PM EST): LDL should be less than 70 mg/dL she is on high intensity statin therapy. Assessment & Plan (02/05/2023 1:55 PM EST): LDL should be less than 70 which it is Assessment & Plan (07/28/2022 8:02 AM EDT): LDL by the guidelines should be less than 70 mg/dL and ideally less than 50 I have rechecked her labs Assessment & Plan (11/29/2021 9:42 AM EDT): She has hyperlipidemia and she has been managed with atorvastatin 80 mg p.o. daily. Continue that she has no side effects. 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 er 11/29/2021 Assessment & Plan (06/04/2024 9:23 AM EDT): LDL should be less than 70 mg/dL hemoglobin A1c should should be less than 7 Assessment & Plan (08/03/2023 8:44 AM EDT): She has really calcified arteries and bilateral popliteal artery occlusions with poor runoff vessels Assessment & Plan (04/04/2023 1:42 PM EST): A1c should be less than 7 and LDL less than 70 mg/dL this is probably the reason why she has such severe calcific disease in the smaller arteries Assessment & Plan (02/05/2023 1:55 PM EST): This is definitely evident in her vascular disease Assessment & Plan (12/04/2022 8:09 AM EDT): A1c should be less than 7 and LDL less than 70 mg/dL by the guidelines. Assessment & Plan (07/28/2022 8:02 AM EDT): I strongly cautioned her on carbohydrate intake and her weight which is not terribly high but could be lower Screening for ischemic heart disease (IHD) 11/29 Assessment & Plan (11/29/2021 9:43 AM EDT): Patient has diabetes patient has hypertension hyperlipidemia along with peripheral vascular disease. She does not have any history of coronary artery disease acute coronary artery syndrome in the past. We will go ahead and do an ETT and echocardiogram. Abnormal electrocardiogram 11/29/2021 Assessment & Plan (12/03/2023 8:24 AM EDT): ECG was done today showing normal sinus rhythm and no acute changes Assessment & Plan (11/29/2021 9:45 AM EDT): Electrocardiogram shows sinus rhythm old inferior wall WY old anterior wall WY she will have an echocardiogram and ETT for now. She may need a technetium 99M Myoview stress test. Encounters Date Type Department Care Team Description 12/12/2024 8:15 AM EDT - 12/12/2024 11:59 PM EDT Hospital Encounter Non-Invasive Cardiology [address] [place] [address] Cassie Marcelo, KYM Discharge Disposition: Home or Self Care 12/12/2024 8:00 AM EDT Office Visit [facility] [address], [address] [place] [address] Cassie Marcelo DNP Tachycardia (Primary Dx); Mixed hyperlipidemia; Palpitations; Peripheral vascular disease; Benign essential hypertension 12/12/2024 Procedure Pass Non-Invasive Cardiology [address] [place] [address] 09/29/2024 Refill [facility] [address], [address] [place] [address] Cassie Marcelo DNP Medication Refill from Last 3 Months Social History Tobacco Use Types Packs/Day Years Used Date Smoking Tobacco: Never Smokeless Tobacco: Never Tobacco Cessation:Counseling Given: Not Answered Alcohol Use Standard Drinks/Week Comments Never 0 [...] on file Sexual Orientation Not on file Last Filed Vital Signs Vital Sign Reading Time Taken Comments Blood Pressure 100/58 12/12/2024 7:49 AM EDT Pulse 107 12/12/2024 7:49 AM EDT Temperature 36.8 C (98.2 F) 07/09/2023 5:16 PM EDT Respiratory Rate 16 07/09/2023 5:16 PM EDT Oxygen Saturation 98% 12/12/2024 7:49 AM EDT Inhaled Oxygen Concentration - - Weight 53.5 kg (118 lb) 12/12/2024 7:49 AM EDT Height 160 cm (5' 2.99 ) 12/12/2024 7:49 AM EDT Body Mass Index 20.91 12/12/2024 7:49 AM EDT Plan of Treatment Upcoming Encounters Date Type Department Care Team (Latest Contact Info) Description 01/06/2025 12:30 PM EST Telemedicine - audio only [facility] [address], [address] [place] [address] Cassie Marcelo DNP 22 [facility], [address] [address] 06/15/2025 9:30 AM EDT Office Visit [facility] [address], [address] [place] [address] Alli Winters DO 22 [facility] [address] [place] [address] Health Maintenance Due Date Last Done Comments Adult Td,Tdap Booster 1959 DEPRESSION SCREENING 1971 HEPATITIS C SCREENING 1977 HIV ONE-TIME SCREENING (18-65 YEARS) 1977 PNEUMOCOCCAL VACCINES (50+ years) (1 of 2 - PCV) 1978 MAMMOGRAM 1999 COLOGUARD 2004 COLONOSCOPY 2004 COLORECTAL CANCER SCREENING 2004 FIT TEST 2004 FOBT 2004 SIGMOIDOSCOPY 2004 VIRTUAL COLONOSCOPY 2004 ZOSTER VACCINES (1 of 2) 2009 CREATININE LEVEL 03/13/2024 03/13/2023, , 08/12/2022, Additional history exists POTASSIUM LEVEL 03/13/2024 03/13/2023, 12/21, 08/12/2022, Additional history exists OSTEOPOROSIS SCREENING INITIAL (ONE-TIME) 2024 HEMOGLOBIN A1C 03/23/2024 09/21/2023, 05/21, 01/09/2023, Additional history exists INFLUENZA VACCINE (#1) 2024 , 11/16/2020, 12/04/2019 COVID-19 VACCINE ( season) 2024 12/25/2020, 04/09/2020, 2020 DIABETIC EYE EXAM 10/28/2024 10/29/2023 BLOOD PRESSURE 06/12/2025 12/12/2024 RSV VACCINE (1 - 1-dose 75+ series) 2034 SMOKING STATUS SCREENING (Once After 26 Yrs) Completed 12/12/2024 HEPATITIS A VACCINES Aged Out No long er eligible based on patient's age to complete this topic HIB VACCINES Aged Out No longer eligi ble based on patient's age to complete this topic IPV VACCINES Aged Out No longer eligi ble based on patient's age to complete this topic MENINGOCOCCAL VACCINES (ACWY) Aged Out No longer eligible based on patient's age to complete this topic MENINGOCOCCAL VACCINES (B) Aged Out N o longer eligible based on patient's age to complete this topic Medical Devices Implanted Type Area Poultry Farmworker Device Identifier Shelf Expiration Date Model / Serial / Lot Pin Pin Left: Elbow Procedures Procedure Name Priority Date/Time Associated Diagnosis Comments BASIC METABOLIC PANEL (BMP) Routine 03/13/2023 7:40 AM EST Other specified pre-operative examination Peripheral vascular disease, unspecified HEMOGLOBIN A1C Routine 08/12/2022 8:06 AM EDT Type 2 diabetes mellitus with other circulatory complication, without long-term current use of insulin from Last 3 Months or Most Recently Relevant to Health Maintenance Results * (ABNORMAL) Basic metabolic panel (03/13/2023 7:40 AM EST) SODIUM 141 133 - 146 mmol/L [facility] CHLORIDE 107 96 - 108 mmol/L [facility] POTASSIUM 3.6 3.3 - 5.1 mmol/L [facility] CO2 19(L) 21 - 35 mmol/L [facility] BUN 13 6 - 19 mg/dL [facility] CREATININE 0.70 0.5 - 1.5 mg/dL [facility] GLUCOSE 191(H) 70 - 99 mg/dL [facility] CALCIUM 9.1 8.4 - 10.3 mg/dL [facility] EGFR 97 >59 mL/min/1.7 3m2 [facility] Comment:Estimated glomerular filtration rate calculated using the CKD-EPI refit equation. ANION GAP 19 10 - 20 mmol/L [facility] Blood 03/13/2023 7:40 AM EST 03/13/2023 7:48 AM EST us Alli Winters DO LAB BLOOD BKR ORDERABLES Nilsa l Result [address] [address] * (ABNORMAL) Hemoglobin A1c (08/12/2022 8:06 AM EDT) HEMOGLOBIN A1C 7.8(H) 4.3 - 5.8 % [facility] Blood 08/12/2022 8:06 AM EDT 08/12/2022 8:13 AM EDT us Alli Salcedo DO LAB BLOOD BKR ORDERABLES Nilsa l Result [address] [address] from Last 3 Months or Most Recently Relevant to Health Maintenance Insurance UNITED INDEMNITY MEDICARE [facility]ICARE RAILROAD [employer] [facility] Member Subscriber Plan / Payer (Ef fective 2024-Present) Name:Brandan Arianne Member ID:[id number] Relation to Subscriber:Self Name:DanielArianne zuluaga Subscriber ID:[id number] Payer ID:[id number] Group ID:Not on file Type:Medicare Address: [place] [id number] [employer] Member Subscriber Plan / Payer (Ef fective 2024-Present) Name:BrandanArianne Relation to Subscriber:Spouse Name:DON GIPSON Date of :1953 (Home) Address: [address] [place] [address] Payer ID:[id number] (NAIC) Type:Indemnity Address: [place] [id number] MEDICARE RAILROAD [employer] IN[employer]MN[employer] MEDICARE RAILROAD [employer] MEDICARE RAILROAD Advance Directives For more information, please contact: [phone] (9AM - 5PM [facility], Sunday-Sunday) * Full Code (Latest Code Status on File) Date Activated Date Inactivated Comments 03/21/2023 7:24 AM Question Answer Comments Code Status Confirmed With: Patient Code Status Communicated To: Other (specify belo w) Code 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 It is not the complete legal health record.[facility]
--- OUTSIDE RECORDS SUMMARY | 2024-12-29 08:08 | XMS_ITS | Encounter Summary ---
Author Organization [facility] Address [address] [facility] [address] [place] [address] Phone Care Team Providers Care Sewing Trimmer Name Role Phone Mimi De León Primary Care Provider [phone] Arsenio Pleitez DO Unavailable Arsenio Pleitez DO Primary Care Provider [phone] Encounter Details Date Type Department Care Team (Late st Contact Info) Description 03/21/2023 Procedure Pass [facility] [address] [place] [address] Social History Tobacco Use Types Packs/Day Years [...] 12:30 PM EST Telemedicine - audio only [facility] [address] [facility], [address] [place] [address] Cassie Marcelo, KYM [address] [address] 06/15/2025 9:30 AM EDT Office Visit [facility] [address] Floor, [address] [place] [address] Alli Winters DO [address] [place] [address] documented as of this encounter Visit Diagnoses Not on filedocumented in this encounter Care Teams Sewing Trimmer Relationship Specialty Start Date End Date Mimi De León PA [address] [place] [id number] PCP - General 11/14/21 07/08/23 Arsenio Pleitez DO [address] [place] [address] PCP - General Internal Medicine 07/09/23 Arsenio Pleitez DO [address] [place] [address] Insurance Assigned Provider 05/26/23 05/25/24 documented as of this encounter Additional Source Comments The information contained in this document represents components of the legal health record. It is not the complete legal health record.[facility]
--- OUTSIDE RECORDS SUMMARY | 2024-12-29 08:08 | XMS_ITS | Encounter Summary ---
Author Organization [facility] Address 399 [facility] [address] [place] [address] Phone Care Team Providers Care Ship Laborer Name Role Phone Arsenio Pleitez DO Primary Care Provider [phone] Reason for Visit * Reason Comments Medication Refill Encounter Details Date Type Department Care Team (Late st Contact Info) Description 09/29/2024 Refill [facility] [address] [facility] 3rd Floor, [address] [place] [address] Cassie Marcelo, KYM 22 [facility], [facility] [address] [place] [address] [email or web address] Medication Refill Social History Tobacco Use Types Packs/Day Years [...] on file documented as of this encounter Progress Notes * Albina Sims MA - 09/30/2024 1:11 PM EDT Rx verified. Pt is out of medication and is leaving on vacation tomorrow. * Valerie Castaneda MA - 09/29/2024 11:07 AM EDT Rx reviewed documented in this encounter Plan of Treatment Upcoming Encounters Date Type Department Care Team (Latest Contact Info) Description 01/06/2025 12:30 PM EST Telemedicine - audio only [facility] [address], [address] [address] Cassie Marcelo, KYM [address] [place] [address], [address] [address] 06/15/2025 9:30 AM EDT Office Visit [facility] [address] [facility], [address] [place] [address] Alli Winters DO [address] [place] [address] documented as of this encounter Visit Diagnoses Diagnosis Peripheral vascular disease Unspecified peripheral vascular disease documented in this encounter Care Teams Ship Laborer Relationship Specialty Start Date End Date Arsenio Pleitez DO PCP - General Internal Medicine 07/09/23 documented as of this encounter Additional Source Comments The information contained in this document represents components of the legal health record. It is not the complete legal health record.[facility]
--- OUTSIDE RECORDS SUMMARY | 2024-12-29 08:08 | XMS_ITS | Encounter Summary ---
Author Organization [facility] Address 399 [facility] [address] [place] [address] Phone Care Team Providers Care Tortilla Maker Name Role Phone Arsenio Pleitez DO Primary Care Provider Encounter Details Date Type Department Care Team (Late st Contact Info) Description 12/12/2024 Procedure Pass Non-Invasive Cardiology [address] [place], [place] [id number] Social History Tobacco Use Types Packs/Day Years [...] 12:30 PM EST Telemedicine - audio only [facility] [address] Floor, [address] [place] [phone] Cassie Marcelo, KYM 22 [facility], [address] [address] 06/15/2025 9:30 AM EDT Office Visit [facility] [address], [address] [place], [place] [phone] Alli Winters DO 22 [facility] [address] [place] [phone] documented as of this encounter Visit Diagnoses Not on filedocumented in this encounter Care Teams Tortilla Maker Relationship Specialty Start Date End Date Arsenio Pleitez DO PCP - General Internal Medicine 07/09/23 documented as of this encounter Additional Source Comments The information contained in this document represents components of the legal health record. It is not the complete legal health record.[facility]
--- OUTSIDE RECORDS SUMMARY | 2024-12-29 08:08 | XMS_ITS | Encounter Summary ---
Author Organization [facility] Address [address] [facility] [address] [place] [address] Phone Care Team Providers Care Forecast Analyst Name Role Phone Mimi De León Primary Care Provider [phone] Arsenio Pleitez DO Unavailable Arsenio Pleitez DO Primary Care Provider [phone] Reason for Referral * - Closed Specialty Diagnoses / Procedures Referred By Sandrine burton Referred To Contact Radiology Diagnoses PAD (peripheral artery disease) Procedures US Lower Extremity Arteries (ERLINDA) Physio Complete Bilat Alli Winters DO Phone: tel: fax: [email or web address] Referral ID Status Reason Start Date Expiration Date Visits Re quested Visits Authorized [id number] Closed 10/27/2022 10/27/2023 1 1 Encounter Details Date Type Department Care Team (Late st Contact Info) Description 10/27/2022 Ancillary Orders [facility] Juanita [address] [facility] 3rd [place] [address] Alli Wintesr DO 22 [facility] [address] [place] [address] [email or web address] PAD (peripheral artery disease) Social History Tobacco [...] 12:30 PM EST Telemedicine - audio only [facility] [address] 3rd [facility], [address] [place] [address] Cassie Marcelo DNP [address] [place] [address], [address] [address] 06/15/2025 9:30 AM EDT Office Visit [facility] [address] 3[address] [facility], [address] [address] Alli Winters DO [address] [place] [address] documented as of this encounter Results * [...] disease documented in this encounter Care Teams Forecast Analyst Relationship Specialty Start Date End Date Mimi De León PA [address] [place] [address] [place] [address] PCP - General 11/14/21 07/08/23 Arsenio Pleitez DO [address] [place] [address] PCP - General Internal Medicine 07/09/23 Arsenio Pleitez DO [address] [place] [address] Insurance Assigned Provider 05/26/23 05/25/24 documented as of this encounter Additional Source Comments The information contained in this document represents components of the legal health record. It is not the complete legal health record.[facility]
--- OUTSIDE RECORDS SUMMARY | 2024-12-29 08:08 | XMS_ITS | Encounter Summary ---
Author Organization [facility] Address [address] [address] Phone Care Team Providers Care Commissioned Sales Associate Name Role Phone Mimi De León Primary Care Provider [phone] Arsenio Pleitez DO Unavailable Arsenio Pleitez DO Primary Care Provider [phone] Encounter Details Date Type Department Care Team (Late st Contact Info) Description 01/22/2023 Procedure Pass [facility] [address] [place] [address] Social History Tobacco Use Types Packs/Day Years [...] 12:30 PM EST Telemedicine - audio only [facility] [address] 3rd Floor, [address] [place] [address] Cassie Marcelo, KYM 22 [facility], [address] [address] 06/15/2025 9:30 AM EDT Office Visit [facility] [address] Floor, [address] [place] [address] Alli Winters DO [address] [address] documented as of this encounter Visit Diagnoses Not on filedocumented in this encounter Care Teams Commissioned Sales Associate Relationship Specialty Start Date End Date Mimi De León PA [address] [facility] [place] [address] PCP - General 11/14/21 07/08/23 Arsenio Pleitez DO [address] [place] [address] PCP - General Internal Medicine 07/09/23 Arsenio Pleitez DO [address] [place] [address] Insurance Assigned Provider 05/26/23 05/25/24 documented as of this encounter Additional Source Comments The information contained in this document represents components of the legal health record. It is not the complete legal health record.[facility]
--- OUTSIDE RECORDS SUMMARY | 2024-12-29 08:08 | XMS_ITS | Encounter Summary ---
Author Organization [facility] Address [address] [facility] [address] [place] [address] Phone Care Team Providers Care Environmental Compliance Inspector Name Role Phone Mimi De León Primary Care Provider [phone] Arsenio Pleitez DO Unavailable Arsenio Pleitez DO Primary Care Provider [phone] Encounter Details Date Type Department Care Team (Late st Contact Info) Description 12/20/2021 Procedure Pass [facility], Ct Scan - [address] [address] Social History Tobacco Use Types Packs/Day Years Used Date Smoking Tobacco: Former Comments Unknown Sex and Gender Information Value Date Recorded Sex Assigned at Not on file Legal Sex Female 3:12 PM EDT Gender Identity Not on file Sexual Orientation Not on file documented as of this encounter Plan of Treatment Upcoming Encounters Date Type Department Care Team (Latest Contact Info) Description 01/06/2025 12:30 PM EST Telemedicine - audio only [facility] [address] [facility], [address] [place] [address] Cassie Marcelo, KYM 22 [facility], [address] [address] 06/15/2025 9:30 AM EDT Office Visit [facility] [address] [place] [address] Dr 3rd Floor, [address] [place] [address] Alli Winters DO [address] [place] [address] documented as of this encounter Visit Diagnoses Not on filedocumented in this encounter Care Teams Environmental Compliance Inspector Relationship Specialty Start Date End Date Mimi De León PA [address] [facility] [place] [address] PCP - General 11/14/21 07/08/23 Arsenio Pleitez DO [address] [place] [address] [email or web address] PCP - General Internal Medicine 07/09/23 Arsenio Pleitez DO [address] [place] [address] [email or web address] Insurance Assigned Provider 05/26/23 05/25/24 documented as of this encounter Additional Source Comments The information contained in this document represents components of the legal health record. It is not the complete legal health record.[facility]
--- OUTSIDE RECORDS SUMMARY | 2024-12-29 08:08 | XMS_ITS | Patient Health Record ---
Author Organization [facility] Address [address] [place] [phone] Care Team Providers Care Final Assembly Worker Name Role Phone Arsenio Pleitez Primary Care Provider Don Roldan Unavailable [phone] Reason For Referral No Information Medications Medication SIG (Take, Route, Fr equency, Duration) Notes Start Date End Date Status Vitamin C 500 MG 1 tablet Orally Once a day; Duration: 30 day(s) Active Lisinopril 10 MG 1 tablet Orally Once a day; Duration: 30 day(s) Active metFORMIN HCl 500 MG 1 tablet with a christiana l Orally Once a day; Duration: 30 day(s) Active Simvastatin 20 MG 1 tablet in the even ing Orally Once a day; Duration: 30 day(s) Active Contrave 8-90 MG 2 tablets Orally Twi ce a day; Duration: 30 day(s) Active glipiZIDE 5 MG 1 tablet Orally Once a day; Duration: 30 day(s) Active Immunizations Vaccine Route Administration [...] Problem Status W/U Status Risk Notes Problem Screening for malignant neoplasm of colon (391349349) Encounter for screening for malignant neoplasm of colon (Z12.11) Active confirmed Problem Preprocedural examination (529920380005739) Preprocedural examination (Z01.818) Active confirmed Plan Of Treatment Future Test Test Name Order Date COLONOSCOPY 06/14/2018 Insurance Providers Payer Name Payer Address Payer Phone Subscriber Number Group Number Insured Name Patient Relationship to Insured Coverage Start Date Coverage End Date [facility] [employer] [address] [place] [address] [id number] RODOLFO GIPSON Self - patient is the insured [facility] [address] [address] [place] [address] [id number] RODOLFO GIPSON Self - patient is the insured Medical (General) History Medical History History ICD Code NIDDM Hypertension Carcinoid of the appendix as below Denies [place],CVA,Lung disease,renal disease Hyperlipidemia Neg. colonoscopy in 2006 [...]
[2024-12-29 13:30] LABS: MANUAL DIFF FLAG NO
[2024-12-29 13:43] LABS: Hematocrit 32.0 % (37.0-47.0); Hemoglobin 11.0 g/dl (12.0-16.0); Imm Gran Abs Auto 0.01 X10*3/uL (0.00-0.03); Imm Gran Pct Auto 0.2 % (0.0-0.4); Lymphocytes Absolute Auto 1.3 X10*3/uL (1.2-4.9); Mean Corpuscular HGB Conc 34.4 g/dl (31.0-35.0); Mean Corpuscular Hemoglobin 31.6 pg (27.0-33.0); Mean Corpuscular Volume 92.0 fL (80.0-98.0); NRBC Abs Auto 0.000 X10*3/uL (0.0-0.012); NRBC Pct Auto 0.0 /100WBC (0.0-0.2); Platelet Count 242 X10*3/uL (160-400); Red Blood Count 3.48 X10*6/uL (4.20-5.50); White Blood Count 5.8 X10*3/uL (4.8-10.8)
[2024-12-29 14:30] LABS: Alanine Aminotransferase 53 U/L (0-31); Albumin Level 4.4 g/dL (3.5-5.0); Alkaline Phosphatase 67 U/L (39-117); Anion Gap 11 (12-20); Aspartate Amino Transferase 36 U/L (5-31); Blood Urea Nitrogen 15 mg/dL (9-16); Calcium 9.4 mg/dL (8.4-10.2); Carbon Dioxide 26 mmol/L (22-29); Chloride 111 mmol/L (96-108); Estimated Glomerular Filt Rate 58; Potassium 3.5 mmol/L (3.3-5.1); Sodium 144 mmol/L (135-145); Total Protein 6.9 g/dL (6.5-8.0)
[2024-12-29 14:50] LABS: Hemoglobin A1C 77.5064 umol/L; Total Hemoglobin (HGBA1C) 1970.7328 umol/L
== END 2024-12-29 08:02 | disposition home or self-care (01) ==
LOC: HO.MANLDS 08:01
PROVIDERS: Visit Provider Physician Assistant
DX: E11.9 Type 2 diabetes mellitus without complications (principal)
CPT/HCPCS: 36415; 80053; 83036; 85025